=== PATIENT | male | born 1955 | race Caucasian/White ===

== ENCOUNTER 2020-01-25 05:30 | Inpatient (IN) | payer OTHER, MEDICAID, SELFPAY ==
--- NOTE | 2020-01-16 21:45 | NUR ---
PT AFEBRILE, IN PRONE POSITION, PT SHOWING NO SIGNS OF ACUTE DISTRESS, ADMINSITERED 2100H MEDICATIONS PER ORDERS, BLOOD GLUCOSE 262, ADMINISTERED 6 UNITS HUMALOG PER PROTOCOL, SAFETY MEASURES IN PLACE, WILL CONTINUE TO MONITOR
[~2020-01-25] VITALS: Ht 177.8 cm; Wt 80.7 kg
--- NOTE | 2020-01-25 05:40 | NUR ---
Biba to bed 08
--- NOTE | 2020-01-25 05:45 | NUR ---
Blood cultures collected and sent to lab.
[2020-01-25 05:50] VITALS: BP 138/84
[2020-01-25] MEDS ORDERED: ALBUTEROL HFA MDI 90 MCG/ACTUATION 8 GM INH ONE (05:50)
[2020-01-25] MEDS ORDERED: AZITHROMYCIN 500 MG in NACL 0.9% 250 ML IV ONE (05:50)
[2020-01-25] MEDS ORDERED: DEXAMETHASONE 4 MG/ML VIAL IVP ONE (05:50)
[2020-01-25] MEDS ORDERED: AZITHROMYCIN 500 MG in DEXTROSE 5% 250 ML IV ONE (05:50)
--- NOTE | 2020-01-25 05:54 | NUR ---
pt is Covid +. room air 72%. placed on 15L NRB, saturations improved to 94%. pt still tachypneic and rhonchi bilat bases.
[2020-01-25] MEDS ORDERED: NACL 0.9% 2,000 ML IV ONE (06:00)
[2020-01-25] MEDS ORDERED: cefTRIAXone 1,000 MG VIAL ONE (06:03)
[2020-01-25] MEDS ORDERED: AZITHROMYCIN 500 MG INJ VIAL IV ONE (06:03)
--- NOTE | 2020-01-25 06:10 | NUR ---
EKG PERFORMED AT BEDSIDE. EKG READS SINUS TACHYCARDIA @ 114
--- NOTE | 2020-01-25 06:12 | NUR ---
64 Y/O MALE BIBA FROM HOME WITH C/O SOB X 1 WEEK. 0/10 PAIN. PT STATES HE WAS DIAGNOSED COVID+ LAST WEEK. PT STATES HE HAS BEEN HOSPITALIZED 4 DIFFERENT TIMES BY [facility], AND [facility]. PT IS A&O X4, BREATHING IS LABORED, AND SHALLOW. PT IS ON 15 L NON REBREATHER AT 97%, WITH SINUS TACH. RHONCHI IS AUSCULTATED AT BILATERAL LUNG BASES, BODY ACHES, WITH PRODUCTIVE COUGH. PT STATES SENSE OF SMELL, AND TASTE IS SLIGHTLY ALTERED. COVID PRECAUTIONS IN PLACE. SIDE RAIL X2, BED IN LOW POSITION, WILL CONTINUE TO MONITOR. NKDA PMH: 2 CARDIAC STENTS, AND DM
[2020-01-25 06:14] LABS: BASOPHILS % (AUTO) 0.1 % (0.0-2.0); HEMATOCRIT 45.7 % (36-52); HEMOGLOBIN 15.1 g/dL (12.0-18.0); LYMPHOCYTES # (AUTO) 1.2 K/uL (2.0-11.5); LYMPHOCYTES % (AUTO) 7.1 % (20.5-51.1); MEAN CORPUSCULAR HEMOGLOBIN 30 pg (27-31); MEAN CORPUSCULAR HGB CONC 33 g/dL (33-37); MEAN CORPUSCULAR VOLUME 90.8 fL (80-94); MONOCYTES # (AUTO) 1.2 K/uL (0.8-1.0); MONOCYTES % (AUTO) 7.1 % (1.7-9.3); NEUTROPHILS # (AUTO) 14.3 K/uL (1.8-7.7); NEUTROPHILS % (AUTO) 85.7 % (42.2-75.2); PLATELET COUNT (AUTO) 193 K/uL (140-450); RED BLOOD CELL COUNT(AUTO) 5.03 MIL/uL (4.20-6.10); RED CELL DISTRIBUTION WIDTH 14.5 % (11.6-13.7); WHITE BLOOD COUNT (AUTO) 16.7 K/uL (4.8-10.8)
--- NOTE | 2020-01-25 06:20 | NUR ---
CHET Carter at bedside obtaining IV contrast consent form.
[2020-01-25 06:22] LABS: ANION GAP 19.8 (8-16); CARBON DIOXIDE 21.4 mmol/L (21-32); CREATININE 1.3 mg/dL (0.6-1.3); POTASSIUM 4.2 mmol/L (3.5-5.1)
--- NOTE | 2020-01-25 06:25 | NUR ---
xray at bedside
[2020-01-25 06:29] LABS: ALBUMIN 3.1 g/dL (3.4-5.0); TOTAL BILIRUBIN 0.8 mg/dL (0.0-1.0)
[2020-01-25] MEDS ORDERED: BENZ-196 PO (06:29)
[2020-01-25] MEDS ORDERED: XALOS OP (06:29)
[2020-01-25] MEDS ORDERED: ALBU6.7H IH (06:29)
[2020-01-25] MEDS ORDERED: AZIT250T3 PO (06:29)
[2020-01-25] MEDS ORDERED: FLUT1DSK IH (06:29)
[2020-01-25] MEDS ORDERED: DOXY100C9 PO (06:29)
[2020-01-25] MEDS ORDERED: PRED20TA5 PO (06:29)
--- NOTE | 2020-01-25 06:36 | NUR ---
CRITICAL LAB VALUE REPORTED BY NICOLA FROM LAB: LACTIC ACID 4.8. ERMD MADE AWARE
--- NOTE | 2020-01-25 06:42 | NUR ---
PER TAMMY LOPEZ, ORDERED AZITHROMYCIN 500MG IN D5% 250 ML HAS BEEN DC'D. INSTEAD TAMMY HAS VERBALLY ORDERED OF AZITHROMYCIN 500MG IN NS 0.9% 250ML
--- NOTE | 2020-01-25 07:00 | NUR ---
RECEIVED CHANGE OF SHIFT REPORT FROM SANDHYA RN FOR CONTINUITY OF CARE.
--- NOTE | 2020-01-25 07:33 | NUR ---
PER [facility] CHARGE, NO BEDS AVAILABLE AT THIS TIME.
--- NOTE | 2020-01-25 09:00 | NUR ---
Patient appears to be resting comfortably in bed. Vital Signs within normal limits. Respirations even and unlabored.
[2020-01-25] MEDS ORDERED: ONDANSETRON 4 MG/2 ML VIAL IM/IVP PRN (09:25)
[2020-01-25] MEDS ORDERED: POTASSIUM CHLORIDE 10 MEQ TABER PO PRN (09:25)
[2020-01-25] MEDS ORDERED: ALBUTEROL HFA MDI 90 MCG/ACTUATION 8 GM INH PRN (09:25)
[2020-01-25] MEDS ORDERED: DOCUSATE SODIUM 100 MG GELCAP PO PRN (09:25)
[2020-01-25 10:00] LABS: CHOL/HDL RATIO 3.6 (1-4.5); FREE T4 (FREE THYROXINE) 1.29 ng/dL (0.76-1.46); MAGNESIUM 1.9 mg/dL (1.8-2.4); PHOSPHORUS 3.1 mg/dL (2.5-4.9); PROTHROMBIN TIME 9.7 secs (10.8-13.4); THYROID STIMULATING HORMONE 1.34 uIU/mL (0.34-3.74)
[2020-01-25 10:10] LABS: APPEARANCE,URINE CLEAR (CLEAR); BILIRUBIN,URINE NEGATIVE (NEGATIVE); BLOOD, URINE TRACE-L (NEGATIVE); COLOR,URINE YELLOW (YELLOW); LEUKOCYTE ESTERASE ,URINE NEGATIVE (NEGATIVE); NITRITE, URINE NEGATIVE (NEGATIVE); PH,URINE 5.5 (5.0-9.0); UGLUCOSE 3+ (NEGATIVE)
[2020-01-25 10:25] LABS: RBC,URINE NONE SEEN /HPF (0-5); WBC,URINE 0-5 /HPF (0-5)
[2020-01-25 10:31] LABS: BARBITURATE, URINE NEGATIVE ng/ml (NEG <=200); BENZODIAZEPINE, URINE NEGATIVE ng/mL (NEG <=200); CANNABINOID, URINE NEGATIVE ng/mL (NEG <=50); COCAINE, URINE NEGATIVE ng/mL (NEG <=300); OPIATE, URINE POSITIVE ng/mL (NEG <=2000); PHENCYCLIDINE SCREEN,URINE NEGATIVE ng/mL (NEG <=25)
--- NOTE | 2020-01-25 13:45 | NUR ---
PT C/O 8/10 CHEST PAIN FROM COUGHING. PT REQUESTING PAIN MEDICATION & COUGH MEDICATION. WILL ADMIN PRN NORCO FOR PAIN & WILL CONTACT DR. TUBBS FOR COUGH MEDICINE ORDER.
--- NOTE | 2020-01-25 13:55 | NUR ---
PROVIDED PT WITH SANDWICH & JUICE REQUESTED. PLACED ON NC 5LPM WHILE PT EATS.
[2020-01-25] MEDS: HYDROcodone/APAP 7.5/325 MG 1 TAB PO PRN ×2 (13:58→19:26)
[2020-01-25] MEDS: guaiFENesin DM 200/20 MG-10 ML 10 ML UDC PO PRN (13:59)
[2020-01-25] MEDS ORDERED: remdesivir COMMUNICATION ORDER 1 EA MISC MC PRN (14:15)
[2020-01-25] MEDS ORDERED: CLINICAL MONITORING MC PRN (14:35)
[2020-01-25] MEDS ORDERED: REMDESIVIR (EUA) 200 MG in NACL 0.9% 100 ML IV SCH (16:00)
--- NOTE | 2020-01-25 17:00 | NUR ---
PATIENT RESTING IN BED AT THIS TIME. PAIN IS 3/10, COUGHING HAS REDUCED.
--- NOTE | 2020-01-25 18:38 | NUR ---
PROVIDED PT WITH DINNER TRAY. PLACED ON NC 5LPM WHILE PT EATS.
--- NOTE | 2020-01-25 19:26 | NUR ---
Pt o2 sat 84% on 15lmp NRB. administered 2 puffs of ventolin inhaler but pt is unable to take deep breath and just coughs it out. Called RT to bring spacer for administration. Pt states he is still having intermittent chest pain 7/10 and would like more pain medication & cough medicine. Informed pt only medication due at this time is norco for pain. will administer.
--- NOTE | 2020-01-25 19:30 | NUR ---
RECEIVED REPORT FROM DAYSNMFT NURSE, PT SITTING UP IN BED, NONREBREATHER 15L, SP02 85%. PT TACHYPNEIC AND TACHYCARDIC. RIGHT AC 18G, SALINE LOCKED. COACHED PATIENT TO LIMIT ACTIVITY AND TALKING TO PREVENT OVEREXERTION. PT RESTLESS. AFEBRILE. BED LOCKED AND IN LOWEST POSITION. SIDERAILS UP. CALL LIGHT WITHIN REACH. PENDING ADMISSION.
[2020-01-25] MEDS ORDERED: LORazepam 2 MG/ML VIAL ONE (19:46)
--- NOTE | 2020-01-25 20:10 | NUR ---
ADMINSTERED ATIVAN ORDERED. PT ASSISTED TO PRONE POSITIONING. PT EDUCATED ON POSITIONING AND RELAXATION TECHNIQUES. PT VERBALIZED UNDERSTANDING AND REPORTS " THIS FEELS MUCH BETTER" SP02 98%, RESPIRATIONS 28. PT NOT IN DISTRESS.
--- NOTE | 2020-01-25 20:25 | NUR ---
Patient will be admitted to care of DR. TUBBS. Admited to TELE. Will go to room 113 . Belongings list completed. Report to CHET CHOE.
--- NOTE | 2020-01-25 20:39 | NUR ---
PT HEADED TO TELE FLOOR WITH PRIMARY NURSE AND RT.
[2020-01-25 21:00] VITALS: BP 161/85
[2020-01-25] MEDS: LATANOPROST 0.005% OP 2.5 ML BTL OP SCH (21:00)
--- NOTE | 2020-01-25 21:00 | NUR ---
RECEIVED PT REPORT FROM ER NURSE FOR CONTINUITY OF CARE. PT ARRIVED TO THE UNIT VIA GURNEY. PT IS AWAKE AND ALERT, A&OX4. BREATHING IS LABORED AND SHALLOW ON 15L O2 NONREBREATHER. O2 SAT IS 88% AND DESATURATING. PT IS PLACED IN PRONE POSITION. SKIN IS WARM, DRY, AND INTACT. BOWEL SOUNDS ARE PRESENT. LUNG SOUNDS ARE COARSE AND DIMINISHED. URINAL IS AT THE BEDSIDE NEEDED. CALL LIGHT IS WITHIN REACH AND BED IS IN THE LOWEST POSITION. HR IS 94 AND BP IS 161/85. IV IS IN THE RIGHT AC 18 GAUGE. PLAN OF CARE DISCUSSED. WILL CONTINUE TO MONITOR PT FOR RESPIRATORY DISTRESS.
--- NOTE | 2020-01-25 21:10 | NUR ---
PT IS DESATURATING ON 15 L O2 NONREBREATHER. PT WAS AT 88% O2 SAT AND IS NOW AT 80% O2 SAT. RR IS 35, HR IS 125, AND BP IS 179/100. CALLED DR. TUBBS ON THE [employer] PHONE NUMBER AND PERSONAL CELL PHONE BUT THE MAILBOX WAS FULL WITH NO ANSWER. TEXTED DR. TUBBS AND INFORMED HIM OF THIS INFORMATION. ALSO PAGED RT TO COME TO BEDSIDE AND HE STATED HE WOULD BE THERE RAUL. ALSO INFORMED CHARGE NURSE, SOHAN, ABOUT THE STATUS OF THE PATIENT. WILL STAY AT BEDSIDE WITH PT AND CONTINUE TO MONITOR.
--- NOTE | 2020-01-25 21:20 | NUR ---
GLOBAL SUPPLY CHAIN VICE PRESIDENT, VERONICA ROSENBERG, AT BEDSIDE WITH RT ASSESSING PT. CHARGE NURSE, SOHAN ROSENBERG, ALSO AT BEDSIDE. PT IS AT 78% O2 SAT ON 15 L NONREBREATHER. RR IS 34 AND BREATHING IS LABORED. RAPID RESPONSE WAS CALLED.
--- NOTE | 2020-01-25 21:30 | NUR ---
BIPAP WAS INITIATED DURING THE RAPID RESPONSE DUE TO PT DESATURATING. PT IS IN PRONE POSITION AND TOLERATING THE BIPAP WELL. O2 SAT IS 96%, HR IS 115, BP IS 149/84, AND RR IS 37. WILL CONTINUE TO MONITOR.
[2020-01-25 21:35] VITALS: BP 173/86
--- NOTE | 2020-01-25 21:35 | NUR ---
RESPONDED TO RAPID RESPOND DUE TO PT DESATURATING ON NON REBREATHER AND IN PRONE POSITION. PT WAS ASSESSED AND BiPAP WAS INITIATED. PT WAS PLACED ON BiPAP SETTINGS: AC/PC IPAP 16 cmH20, EPAP 6, FiO2 100% WITH SPO2 OF 93%. PT PLACED BACK IN PRONE POSITION. BiPAP PLUGGED IN RED OUTLET. ALARMS SET AND AUDIBLE TO ENVIRONMENT. AUSCULTATION REVEALS RALES BILATERAL BREATH SOUNDS. PT IS TOLERATING WELL. WILL CONTINUE TO MONITOR PT.
[2020-01-25] MEDS: LORazepam 2 MG/ML VIAL IVP PRN (21:49)
--- NOTE | 2020-01-25 21:49 | NUR ---
PT IS VERY ANXIOUS WITH THE BIPAP AND WAS GIVEN ATIVAN PRN FOR ANXIETY. BP WAS 149/84 PRIOR TO ADMINISTRATION OF MEDICATION. WILL MONITOR PT FOR ANXIETY.
--- NOTE | 2020-01-25 22:10 | NUR ---
DR. TUBBS WAS INFORMED ABOUT THE RAPID RESPONSE ON THE PT. DR. TUBBS STATED THAT THE PT WILL STAY ON THE FLOOR LONG HE IS TOLERATING THE BIPAP WELL AND TO INFORM HIM ABOUT ANY CHANGES.
[2020-01-25 23:34] VITALS: BP 152/83
[2020-01-25] MEDS ORDERED: ALBUTEROL SULFATE/IPRATROPIU 3 ML SOL IH PRN (23:35)
[2020-01-26] VITALS (8 sets, daily range): BP systolic 113–161; BP diastolic 57–82
--- NOTE | 2020-01-26 | NUR ---
PT IS ON BIPAP. O2 SAT IS 96%, RR IS 35, AND HR IS 94. PT IS STABLE AT THIS TIME. WORK OF BREATHING IS UNLABORED. PT IS IN PRONE POSITION.
[2020-01-26] MEDS: ALBUTEROL SULFATE/IPRATROPIU 3 ML SOL IH SCH ×4 (00:40→13:21)
--- NOTE | 2020-01-26 00:53 | NUR ---
PT SPILLED URINE OUT OF THE URINAL ONTO THE BED. PT'S LINENS/ GOWN ARE NOW CHANGED AND NEW LINENS WERE PLACED ON THE BED. PT IS NOW STABLE IN PRONE POSITION WITH BIPAP ON. O2 SAT IS 98%. RR IS 32.
[2020-01-26] MEDS: LORazepam 2 MG/ML VIAL IVP PRN ×2 (03:17→09:10)
--- NOTE | 2020-01-26 03:17 | NUR ---
ROUNDED ON PT. HE SAID HE WAS VERY ANXIOUS SO HE PULLED OFF HIS BIPAP AND WAS DESATURATING TO 70%. HE ALSO PULLED OFF ALL LEADS ON HIS EKG. EKG LEADS WERE PLACED ON PT AND BIPAP IS NOW BACK ON. PT O2 SAT IS 98% AND RR IS 32. PT WAS GIVEN ATIVAN PRN FOR ANXIETY. BP PRIOR TO ADMINISTRATION WAS 145/89. WILL CONTINUE TO MONITOR ANXIETY.
--- NOTE | 2020-01-26 04:04 | NUR ---
INFORMED PT ABOUT THE ORDER FOR CONVALESCENT PLASMA. GAVE PT EDUCATION ABOUT THE PLASMA. AT THIS TIME PT STATES HE WOULD LIKE TO THINK ABOUT IT MORE BEFORE HE SIGNS THE CONSENT.
--- NOTE | 2020-01-26 05:20 | NUR ---
ROUNDED ON PT. HE IS SLEEPING IN PRONE POSITION WITH BIPAP ON. O2 SAT IS 98% AND RR IS 32. NO RESPIRATORY DISTRESS NOTED. WILL CONTINUE TO MONITOR.
--- NOTE | 2020-01-26 05:40 | NUR ---
RESPIRATORY THERAPIST, PRADEEP, ROUNDED ON PT. PT HAD TAKEN OFF THE BIPAP AND WAS LAYING IN SUPINE POSITION. O2 SAT WAS 47% AND PT APPEARED DROWSY. PT WAS PLACED BACK ON BIPAP AND PLACED IN PRONE POSITION. O2 SAT WENT BACK UP TO 99% AND RR IS 33. EDUCATION WAS PROVIDED ON THE IMPORTANCE OF RECEIVING OXYGEN THROUGH THE BIPAP. PT WAS ALSO INFORMED ABOUT THE POSSIBLE OUTCOMES IF HE DOES NOT RECEIVE THE PROPER AMOUNT OF OXYGEN TO THE BODY BY TAKING OFF THE BIPAP. PT VERBALIZED UNDERSTANDING. NO RESPIRATORY DISTRESS NOTED.
--- NOTE | 2020-01-26 06:08 | NUR ---
FOUND PT IN SUPINE POSITION. PT HAD TAKEN OFF BiPAP MASK WITH SPO2 IN 47-48%. PT WAS RESPONSIVE AND HAD A PULSE. PLACED PT BACK ON BiPAP AND PRONE POSITION. SPO2 IN 96 TO 99%. RN REPORTED THAT PT TOOK OF MASK EARLIER. CHARGE NURSE WAS NOTIFIED. RN WILL MONITOR PT.
--- NOTE | 2020-01-26 07:25 | NUR ---
ENDORSED PT TO DAY SHIFT NURSE FOR CONTINUITY OF CARE. PT IS ASLEEP IN PRONE POSITION. O2 SAT IS 100% ON 100% FIO2 ON BIPAP. RR IS 35 AND HR IS 76. PT IS STABLE AT THIS TIME. FALL PRECAUTIONS IN PLACE. BED IS IN THE LOWEST POSITION. BELONGINGS AT THE BEDSIDE. NEVER CALLED BACK WHEN I LEFT A MESSAGE EARLIER IN THE SHIFT.
--- NOTE | 2020-01-26 07:26 | NUR ---
RECEIVED ENDORSEMENT FROM FROM KIER DRIER ON LEFT SIDE LYING POSITION, AWAKE, ALERT, WITH BIPAP [id number]%, SATURATING AT 95%, MILD LABORED BREATHING NOTED, RR-26BPM. SKIN WARM TO TOUCH, WITH IV CANNULA G 18 AT RT AC NOTED. DX WITH COVID POSITIVE, PNEUMONIA AND HYPOXIA, ON DROPLET ISOLATION, SAFETY MEASURES IN PLACE AND CONTINUE MONITOR
[2020-01-26 07:31] LABS: HEMATOCRIT 38.6 % (36-52); HEMOGLOBIN 12.7 g/dL (12.0-18.0); MEAN CORPUSCULAR HEMOGLOBIN 30 pg (27-31); MEAN CORPUSCULAR HGB CONC 33 g/dL (33-37); MEAN CORPUSCULAR VOLUME 90.8 fL (80-94); PLATELET COUNT (AUTO) 171 K/uL (140-450); RED BLOOD CELL COUNT(AUTO) 4.25 MIL/uL (4.20-6.10); RED CELL DISTRIBUTION WIDTH 14.1 % (11.6-13.7); WHITE BLOOD COUNT (AUTO) 15.2 K/uL (4.8-10.8)
[2020-01-26 07:46] LABS: MAGNESIUM 2.2 mg/dL (1.8-2.4); PHOSPHORUS 3.4 mg/dL (2.5-4.9)
[2020-01-26 07:56] LABS: LYMPHOCYTES % (MANUAL) 10 % (20-46); MONOCYTES % (MANUAL) 8 % (5-12)
--- NOTE | 2020-01-26 08:05 | NUR ---
TEXTED DR. TUBBS TO INFORM HIM THAT THE PT DESATURATED TWICE LAST NIGHT BY TAKING OFF HIS BIPAP. I MONITORED THE PT VERY CLOSELY AND PROVIDED PT EDUCATION ON IMPORTANCE OF THE BIPAP AND WHAT COULD HAPPEN BY TAKING IT OFF UNEXPECTEDLY. NO RESPONSE YET, BUT I INFORMED VANIA ROSENBERG TO EXPECT A REPLY FROM THE DOCTOR.
[2020-01-26 08:09] LABS: T4 (THYROXINE) 7.3 ug/dL (4.5-12.0)
[2020-01-26 08:23] LABS: ALBUMIN 2.3 g/dL (3.4-5.0); ANION GAP 19.8 (8-16); CARBON DIOXIDE 20.6 mmol/L (21-32); POTASSIUM 4.4 mmol/L (3.5-5.1); TOTAL BILIRUBIN 0.7 mg/dL (0.0-1.0)
--- NOTE | 2020-01-26 08:50 | NUR ---
PATIENT HAS BEEN SCREENED AND CATEGORIZED MODERATE NUTRITION RISK. PATIENT WILL BE SEEN WITHIN 3-5 DAYS OF ADMISSION. 01/27/20 01/29/[address]
[2020-01-26] MEDS: DEXAMETHASONE 4 MG TAB PO SCH (08:58)
[2020-01-26] MEDS: ASCORBIC ACID 500 MG TAB PO SCH (08:59)
[2020-01-26] MEDS: ZINC SULF 220 MG CAP PO SCH (08:59)
[2020-01-26] MEDS: AZITHROMYCIN 250 MG TAB PO SCH (08:59)
--- NOTE | 2020-01-26 09:05 | NUR ---
APPARENTLY ANXIOUS AND REMOVING HIS BIPAP, RT AT BEDSIDE. ABLE ATE SMALL AMOUNT OF BREAKFAST SERVED. DUE MEDICATION GIVEN. ATIVAN 1MG IV ORDERED PRN GIVEN, HEALTH TEACHING RENDERED, REINFORCEMENT NEEDED, KEPT COMFORTABLE TO BED, CONTINUE MONITOR
--- NOTE | 2020-01-26 10:42 | NUR ---
ASLEEP, NON LABORED BREATHING NOTED.
--- NOTE | 2020-01-26 10:52 | NUR ---
DC PLANNIN YRS OLD MALE PATIENT WAS ADMITTED FROM HOME WITH A DX OF SEPSIS, PNEUMONIA, COVID POSITIVE. PT HAS A HX OF CARDIAC STENT PLACEMENT IN AUGUST 2019, CABG. CXR SHOWED PATCHY CONSOLIDATIONS THROUGH THE LUNGS WHICH COULD REPRESENT PNEUMONIA. CT CHEST SHOWED NO PE. RAPID COVID TEST POSITIVE PCR IS PENDING. INFLUENZA A&B NEGATIVE. BLOOD AND URINE CULTURE PENDING. ADMINISTERED COVID PROTOCOL , IVF, IV ABX ROCEPHIN AND AZITHROMYCIN. CONSULTED WITH ANTWAN AND BLANCA. DC PLAN TO GO HOME WHEN STABLE CM TO FOLLOW. Addendum: 01/28/20 at 1627 by Natasha Butts RN DC PLANNING: PT IS ON BIPAP WITH 100% FIO2 , SEEN BY ANTWAN MELCHOR , CONTINUE CURRENT THERAPY .CM TO FOLLOW Addendum: 02/02/20 at 1626 by Natasha Butts RN DC PLANNING: PT HAS LOW BP 93/54 ON BP SUPPORT MEDS INTUBATED SEDATED , CONTINUE COVID TREATMENT , PRONE POSITIONED ID, PULMO AND CARDIO FOLLOWING. POOR PROGNOSIS, MD TO DISCUSS WITH FAMILY. CM TO FOLLOW Addendum: 02/03/20 at 1342 by Natasha Butts RN DC PLANNING: PT INTUBATED AND SEDATED DAY 4 WITH [id number]% .ON IVF , FENTANYL, PROPOFOL, LEVOPHED, ZOSYN,DECADRON AND LOVENOX. POSSIBLE MARY CATH TODAY WITH DR DUPONT AND HEMODIALYSIS TOMORROW . ID,PULMO, CARDIO AND NEPHRO FOLLOWING . CM TO FOLLOW
--- NOTE | 2020-01-26 12:29 | NUR ---
RT CONTACTED TO TEMPORARILY REMOVED THE BIPAP, PATIENT WILL TAKE HIS LUNCH.
--- NOTE | 2020-01-26 12:45 | NUR ---
EXPLAINED THE INDICATION AND IMPORTANCE OF CONVALESCENT PLASMA, VERBALIZED UNDERSTANDING AND SIGNED THE CONSENT.
--- NOTE | 2020-01-26 13:19 | NUR ---
SOCIAL WORK NOTE: SW WAS UNABLE TO MEET PATIENT AT BEDSIDE DUE TO MEDICAL CONDITION. SW CONTACTED PATIENT'S ROOM PHONE AND PATIENT'S , LOBO GAY [phone]. SW LEFT VM. LAURA ALSO CONTACTED PATIENT'S NURSE TO SEE IF ROOM PHONE WAS FUNCTIONING. PER CHET BUTTS, ROOM PHONE IS WORKING, BUT PATIENT IS ON BIPAP AND IS SLEEPING. SW WILL FOLLOW UP. Addendum: 01/26/20 at 1517 by Celestine Richardson Patient's Orientation Person Situation Place Time Information Provided By PATIENT Comments LAURA MET PATIENT AT BEDSIDE TO COMPLETE ASSESSMENT. Stitch Bonding Machine Drawer In, Realtionship and Phone Number LOBO GAY [phone] [facility] Power of Zinc Plate Grainer No Does Patient Have a POLST No Identifying Problems No Social Work Triggers Is A Social Work Consult Needed No Mandate Report Filed No Explanation Of Identifying Problems PATIENT IS A 64-YEAR-OLD MALE ADMITTED FOR SEPSIS, PNEUMONIA, AND COVID. PATIENT HAS PMHX OF CARDIAC STENTS IN AUGUST 2019. PATIENT REPORTED NO SUBSTANCE ABUSE HISTORY OR MENTAL HEALTH HISTORY. Admitted From Home Pre-Admission Level Of Functioning Status Assist With ADL Level Of Functioning Comment PATIENT STATED THAT HE IS INDEPENDENT WITH ADLS AT BASELINE, BUT HAS BEEN LESS INDEPENDENT SINCE ONOFRE VIRUS. PATIENT STATED THAT HE RECEIVES ADEQUATE CARE FROM HIS . Prior Resources/Services Used In Last 12 Months No Prior Resources Used Prior DME Wheelchair Dialysis Comments N/A Living Situation House Lives With Spouse Patient Had Caregiver No Home Support No Caregiver Issues Financial Issues No Known Financial Issue Referral To The Financial Counselor Needed No Factors/Needs No D/C Needs Identified Pt/Rep Participated In Discharge Plan Yes Patient/Family Agress With Discharge Plan Yes Discharge Plan Comments TENTATIVE DISCHARGE PLAN IS FOR PATIENT TO RETURN HOME. DC Plan Status Initiated
[2020-01-26] MEDS: REMDESIVIR (EUA) 100 MG in NACL 0.9% 100 ML IV SCH (14:20)
--- NOTE | 2020-01-26 14:28 | NUR ---
FULLY AWAKE AND ALERT, NOT IN DISTRESS NOTED, DUE REMDESIVER IVPB GIVEN
--- NOTE | 2020-01-26 15:30 | NUR ---
DR. TUBBS SIGNED THE CONSENT FOR CONVALESCENT PLASMA TRANSFUSION.
--- NOTE | 2020-01-26 15:46 | NUR ---
ASLEEP, STILL ON BIPAP, BREATHING SPONTANEOUSLY, NON LABORED NOTED.
--- NOTE | 2020-01-26 16:10 | NUR ---
AFTERNOON CARE DONE BY BEHAVIORAL MEDICAL DIRECTOR, PATIENT NOT IN DISTRESS NOTED
--- NOTE | 2020-01-26 16:45 | NUR ---
BLOOD BANK CONTACTED TO FOLLOW UP THE PLASMA, SAID TO CALL BACK AFTER 10MINS, BLOOD BANK PERSONNEL NOT AROUND
[2020-01-26] MEDS: HYDROcodone/APAP 7.5/325 MG 1 TAB PO PRN (17:47)
--- NOTE | 2020-01-26 17:51 | NUR ---
COMPLAINED OF CHEST PAIN WHEN COUGHING, 5/10, NORCO 1 TAB ORDERED PRN GIVEN, KEPT COMFORTABLE TO BED
--- NOTE | 2020-01-26 18:08 | NUR ---
BLOOD BANK CONTACTED AND SPOKE WITH MS. OTLENTINO, CONVALESCENT PLASMA STILL NOT AVAILABLE.
--- NOTE | 2020-01-26 18:50 | NUR ---
CONTACTED TO UPDATE PATIENT STATUS AND BRING PT CELLPHONE REQUESTED BY THE PATIENT.
--- NOTE | 2020-01-26 19:30 | NUR ---
RECEIVED PATIENT FROM DAY SHIFT ON BIPAP ON DOCUMENTED SETTING. BIPAP PLUGGED INTO RED OUTLET. BMV AT BEDSIDE. MASK SECURED. ALARMS SET. WILL CONTINUE TO MONITOR CLOSELY
--- NOTE | 2020-01-26 19:31 | NUR ---
ENDORSED TO WAREHOUSE SHIPPING ASSOCIATE IN STABLE CONDITION FOR CONTINUITY OF CARE
--- NOTE | 2020-01-26 19:33 | NUR ---
RECEIVED PT IN STABLE CONDITION FROM AM NURSE. TELE PT. AAOX4. BEDREST . WITH BIPAP ON 93% O2 SAT. NO SOB NOTED. WITH IVF INFUSING WELL ON THE RTACg#18. CLEAR AND PATENT. DROPLET PRECAUTION DUE TO COVID + PCR STILL PENDING. BED ON LOW POSITION. SIDE RAILS UP X2. CALL LIGHT PLACED WITHIN REACH. WILL CONTINUE TO MONITOR.
[2020-01-26] MEDS: LATANOPROST 0.005% OP 2.5 ML BTL OP SCH (20:42)
--- NOTE | 2020-01-26 20:52 | NUR ---
LAB CALLED FOR COVID- 19 PCR TEST RESULT - POSITIVE. PT ALREADY ON DROPLET PRECAUTION.
[2020-01-27] VITALS: BP 151/79
[2020-01-27] MEDS: ALBUTEROL SULFATE/IPRATROPIU 3 ML SOL IH SCH ×4 (01:35→19:04)
--- NOTE | 2020-01-27 02:45 | NUR ---
I UNIT FRESH FROZEN PLASMA STARTED AFTER VERIFIED WITH ANOTHER RNANANDA WITH THE PT. VITAL SIGNS TAKEN BEFORE . STABLE. O2 SAT 97%. INSTRUCTED PT NOT TO REMOVE THE BIPAP MACHINE TO KEEP HIS O2 SAT GOOD WHILE IN BLOOD TRANSFUSION. WILL CONTINUE TO MONITOR FOR ANY REACTION TO BLOOD.
--- NOTE | 2020-01-27 03:30 | NUR ---
BLOOD WAS TRANSFUSED AND VITAL SIGNS TAKEN AFTER . STABLE ,O2 SAT 97% AFEBRILE. NO REACTION NOTED.
[2020-01-27 03:45] VITALS: BP 146/77
--- NOTE | 2020-01-27 05:00 | NUR ---
CHECKED ON PT. O2 SAT 96%. NO DISTRESS NOTED.
--- NOTE | 2020-01-27 07:10 | NUR ---
ENDORSED PT IN STABLE CONDITION TO AM NURSE.
--- NOTE | 2020-01-27 07:15 | NUR ---
RECEIVED PT FROM CARTOGRAPHY SUPERVISOR NURSE, PT IS ON BIPAP MACHINE IPAP 16, PIP 18, EPAP 8, R 16, O2 100%, IV NOTED TO RAC G 18 RUNNING NS @ 10 ML/HR, URINAL AT BEDSIDE, PT IS AWAKE, NO SIGNS OF DISTRESS NOTED, SAFETY AND FALL PRECAUTIONS IN PLACE, WILL CONTINUE TO MONITOR.
[2020-01-27 07:43] LABS: HEMATOCRIT 42.2 % (36-52); HEMOGLOBIN 13.8 g/dL (12.0-18.0); MEAN CORPUSCULAR HEMOGLOBIN 30 pg (27-31); MEAN CORPUSCULAR HGB CONC 33 g/dL (33-37); MEAN CORPUSCULAR VOLUME 91.7 fL (80-94); NEUTROPHILS % (AUTO) 84.1 % (42.2-75.2); PLATELET COUNT (AUTO) 238 K/uL (140-450); RED BLOOD CELL COUNT(AUTO) 4.61 MIL/uL (4.20-6.10); RED CELL DISTRIBUTION WIDTH 14.6 % (11.6-13.7); WHITE BLOOD COUNT (AUTO) 16.2 K/uL (4.8-10.8)
[2020-01-27 07:44] LABS: BASOPHILS % (AUTO) 0.2 % (0.0-2.0); LYMPHOCYTES # (AUTO) 0.7 K/uL (2.0-11.5); LYMPHOCYTES % (AUTO) 4.4 % (20.5-51.1); MONOCYTES # (AUTO) 1.8 K/uL (0.8-1.0); MONOCYTES % (AUTO) 11.3 % (1.7-9.3); NEUTROPHILS # (AUTO) 13.6 K/uL (1.8-7.7)
[2020-01-27 08:00] VITALS: BP 147/81
[2020-01-27 08:25] LABS: MAGNESIUM 2.3 mg/dL (1.8-2.4); PHOSPHORUS 3.6 mg/dL (2.5-4.9)
[2020-01-27] MEDS: ZINC SULF 220 MG CAP PO SCH (09:12)
[2020-01-27] MEDS: AZITHROMYCIN 250 MG TAB PO SCH (09:13)
[2020-01-27] MEDS: ASCORBIC ACID 500 MG TAB PO SCH (09:13)
[2020-01-27] MEDS: DEXAMETHASONE 4 MG TAB PO SCH (09:13)
--- NOTE | 2020-01-27 09:16 | NUR ---
PT WAS GIVEN SCHEDULED MORNING MEDICATIONS, PT TOLERATED MEDICATION WELL, WILL CONTINUE TO MONITOR.
[2020-01-27 10:09] LABS: ALBUMIN 2.4 g/dL (3.4-5.0); ANION GAP 18.4 (8-16); CARBON DIOXIDE 22.2 mmol/L (21-32); POTASSIUM 4.6 mmol/L (3.5-5.1); TOTAL BILIRUBIN 0.5 mg/dL (0.0-1.0)
--- NOTE | 2020-01-27 11:15 | NUR ---
INCREASED EPAP TO 8 TO MAINTAIN SATURATION AT 88% OR GREATER.
--- NOTE | 2020-01-27 11:40 | NUR ---
PT IV LINE WAS INFILTRATED, INSERTED NEW IV IN L. HAND 22 G, WILL CONTINUE TO MONITOR.
[2020-01-27 12:00] VITALS: BP 158/84
[2020-01-27] MEDS: REMDESIVIR (EUA) 100 MG in NACL 0.9% 100 ML IV SCH (13:41)
--- NOTE | 2020-01-27 13:41 | NUR ---
PT WAS GIVEN REMDESIVIR NOW, WILL MONITOR PT.
[2020-01-27 16:00] VITALS: BP 159/90
--- NOTE | 2020-01-27 17:08 | NUR ---
DR. LONG MADE A TELEPHONE ORDER TO START PT ON D5NS AT 100ML/HR NOW.
[2020-01-27] MEDS: DEXT 5% /NACL 0.9% 1,000 ML IV SCH (17:24)
--- NOTE | 2020-01-27 18:44 | NUR ---
CALLED DR LONG AND INFORMED THE DOCTOR OF THE PT'S RESPIRATORY STATUS. PER RT ASSESSMENT, PT'S O2 SAT RANGES FROM 88 TO 78%. ER DOCTOR CAME TO PT ROOM TO ASSESS PT. ER MD SAID PT MAY NEED TO BE INTUBATED DEPENDING ON ABG RESULTS. PT'S CURRENT VITALS BP 135/93, PULSE 87, RR 38, O2 88%, WILL CONTINUE TO MONITOR PT. RT ON BEDSIDE.
--- NOTE | 2020-01-27 18:53 | NUR ---
RECEIVED PATIENT OPN BIPAP 16/8 100 PERCENT. PATIENT IS VERY TACHYPNEIC. RR IN THE HIGH 40S. INCREASED SETTINGS TO 20/10,RR16, 100 PERCENT. SATURATION IMPROVED. BUT PATIENT IS USING ACCESSORY MUSCLES AND IS BREATHING FAST. PT SEEN BY DR. MUNIZ ER PHYSICIAN. REQUESTED FOR AN ABG
--- NOTE | 2020-01-27 19:10 | NUR ---
ABG SHOWN TO DR. MUNIZ AND CHET BREWSTER
--- NOTE | 2020-01-27 19:20 | NUR ---
ENDORSED PT TO MD UROLOGIST NURSE FOR CONTINUITY OF CARE.
--- NOTE | 2020-01-27 19:21 | NUR ---
RECEIVED ENDORSEMENT FROM CHET BOND. PT IS ON BIPAP, WITH O2 SAT FLUCTUATING AT 84%-86% BECAUSE THE PT IS SPITTING AND TAKING OFF THE BIPAP, HIS O2 SAT FLUCTUATES BUT AM NURSE TOLD ME THAT DR. MUNIZ IN E.R. TOLD HER THAT WE WILL NOT INTUBATE THE PT PER ABG RESULT. PT O2 SAT INCREASES SLOWLY UP ONCE HE PUT BACK ON HIS BIPAP. WILL CLOSELY MONITOR PT. IVF INFUSING, FALL PROTOCOL IN PLACE, SAFETY MEASURES IN PLACE, CALL LIGHT WITHIN REACH.
--- NOTE | 2020-01-27 19:50 | NUR ---
E.R. DR. MUNIZ CAME TO SEE THE PATIENT AND INFORM ME THAT PT DOESN'T NEED TO BE INTUBATED FOR NOW BECAUSE THE ABG RESULT IS OK, WILL CLOSELY MONITOR PT, I WILL LET DR. MUNIZ KNOW IN CASE THERE IS CHANGE.
[2020-01-27 20:00] VITALS: BP 159/96
[2020-01-27] MEDS: LATANOPROST 0.005% OP 2.5 ML BTL OP SCH (21:44)
--- NOTE | 2020-01-27 22:04 | NUR ---
DR. MUNIZ SEEN PT, PER RT SAID THAT PT IS NOT FOR INTUBATION FOR NOW. WILL CLOSELY MONITOR PT. CALL LIGHT WITHIN REACH.
[2020-01-27] MEDS: guaiFENesin DM 200/20 MG-10 ML 10 ML UDC PO PRN (23:16)
--- NOTE | 2020-01-27 23:20 | NUR ---
PT COUGHING, GAVE COUGH MED PO, TOLERATED WELL. NO SOB, ALL NEEDS ATTENDED. CALL LIGHT WITHIN REACH.
[2020-01-28] VITALS (7 sets, daily range): BP systolic 134–178; BP diastolic 72–109
--- NOTE | 2020-01-28 | NUR ---
V/S TAKEN, TEMP 100.1. COOLING MEASURES IN PLACE, ALL NEEDS ATTENDED. KEPT COMFORTABLE. CALL LIGHT WITHIN REACH. WILL CLOSELY MONITOR.
[2020-01-28] MEDS: ALBUTEROL SULFATE/IPRATROPIU 3 ML SOL IH SCH ×4 (00:55→19:00)
--- NOTE | 2020-01-28 01:20 | NUR ---
RT IS INSIDE THE ROOM, TALKING TO PT.
[2020-01-28] MEDS: LORazepam 2 MG/ML VIAL IVP PRN ×3 (01:29→16:58)
--- NOTE | 2020-01-28 01:34 | NUR ---
PT AGITATED, GAVE ATIVAN IVP PRN ORDERED, HOB ELEVATED, ON CONTINUED BIPAP, NO DISTRESS, PT RESTING W/ EYES CLOSE, AROUSABLE TO VERBAL, WILL CLOSELY MONITOR PT.
[2020-01-28] MEDS: DEXT 5% /NACL 0.9% 1,000 ML IV SCH ×3 (03:15→23:10)
[2020-01-28] MEDS: ACETAMINOPHEN 325 MG TAB PO PRN ×2 (04:37→22:43)
--- NOTE | 2020-01-28 04:37 | NUR ---
CHECKED PT, O2 SAT 91%, TYLENOL PO GIVEN PRN FOR FEVER, PERINEAL CARE RENDERED, REPOSITIONED, KEPT COMFORTABLE, CALL LIGHT WITHIN REACH.
--- NOTE | 2020-01-28 07:15 | NUR ---
PT IS IN STABLE CONDITION, O2 SAT AT 91%-92%, ENDORSED TO AM SHIFT RN FOR CONTINUITY OF CARE.
[2020-01-28 07:19] LABS: ALBUMIN 2.2 g/dL (3.4-5.0); ANION GAP 20.7 (8-16); CARBON DIOXIDE 19.7 mmol/L (21-32); POTASSIUM 4.4 mmol/L (3.5-5.1); TOTAL BILIRUBIN 0.6 mg/dL (0.0-1.0)
--- NOTE | 2020-01-28 07:22 | NUR ---
BREATHING TX NOT GIVEN DUE TO POSITIVE COVID PER RT PROTOCOL. PT IS ASLEEP AND COMFORTABLE. WILL CONTINUE TO MONITOR.
[2020-01-28] MEDS: ASCORBIC ACID 500 MG TAB PO SCH (09:00)
[2020-01-28] MEDS: AZITHROMYCIN 250 MG TAB PO SCH (09:00)
[2020-01-28] MEDS: DEXAMETHASONE 4 MG TAB PO SCH (09:00)
[2020-01-28] MEDS: ZINC SULF 220 MG CAP PO SCH (09:00)
--- NOTE | 2020-01-28 09:00 | NUR ---
Pt's SaO2 decreases to 80% and breathing becomes labored and tachypneic when bipap mask is removed. PO meds not given d/t intolerance in room air. Dr Stoner notified on the phone. No new orders.
--- NOTE | 2020-01-28 12:38 | NUR ---
Pt RR=30/min, SaO2 @ 85% on bipap with 100% FiO2. Pt awake, able to follow commands and verbalize needs. RT Alisa and David at bedside. Verbal cues provided to patient to take slow deep breaths. Lorazepam administered for anxiety. HOB remains at high fowlers.
--- NOTE | 2020-01-28 12:54 | NUR ---
BREATHING TX NOT GIVEN DUE TO COVID POSITIVE AND ANXIETY EPISODE.
--- NOTE | 2020-01-28 12:55 | NUR ---
INCREASED BIPAP SETTINGS TO IPAP 22 AND EPAP 12. PTS SATURATION IS 84-87% SPO2.
--- NOTE | 2020-01-28 14:20 | NUR ---
01/28/20 RD INITIAL ASSESSMENT COMPLETED PLEASE REFER TO NUTRITION ASSESSMENT UNDER CARE ACTIVITY FOR ESTIMATED NUTRITIONAL NEEDS. 1. HOLD MEALS IF PT IS AT RISK OF ASPIRATION 2. IF MEDICALLY STABLE FOR PO INTAKE RECOMMEND CCHO 60GM DIET WITH GLUCERNA TID 3. RD TO FOLLOW-UP 2-3 DAYS, HIGH RISK JESE CHAMBERS RD
[2020-01-28] MEDS: REMDESIVIR (EUA) 100 MG in NACL 0.9% 100 ML IV SCH (14:42)
--- NOTE | 2020-01-28 14:55 | NUR ---
Pt observed to be shivering and states he feels cold, axillary temp = 99.0, HR130, BP 150/74. Dr. Stoner notified of uncontrollable shivering and tachycardia. Received order to administer one time dose of lorazepam 1mg IVP. Order noted and carried out.
[2020-01-28] MEDS ORDERED: LORazepam 2 MG/ML VIAL IVP SCH (15:30)
--- NOTE | 2020-01-28 15:30 | NUR ---
Pt in high fowlers in bed, RR24/min on bipap (I-22, E12, FiO2 100%), MC=083, SaO2 90%. Pt has eyes closed but verbally responsive and follows commands when instructed.
[2020-01-28] MEDS ORDERED: DEXTROSE 50% 50 ML SYR IVP PRN (15:35)
[2020-01-28] MEDS: BLOOD GLUCOSE MONITORING 1 DEV DEV FS SCH ×2 (16:46→21:00)
[2020-01-28] MEDS: INSULIN LISPRO SLIDING SCALE 100 UNITS/ML VIAL SUBQ PRN ×2 (16:59→22:43)
--- NOTE | 2020-01-28 17:45 | NUR ---
Observed pt pulling on bipap mask. SaO2 decreased to 80%. Instructed patient to keep mask on to prevent SOB. Pt verbalized understanding. Assisted patient in replacing bipap mask, verbal cues provided to pt re: breathing with bipap. Pt able to follow commands. SaO2 slowly improved to 90% with previous bipap settings.
--- NOTE | 2020-01-28 19:20 | NUR ---
RECEIVED PT AAOX4 , RESTLESS - O2 SAT UP AND DOWN TO 80'S , - STAT REFER TO RT - FOR FURTHER ASSESSMENT RR 36 IV SITE INTACT AND PATENT . ON BI PAP SETTING - PLAN OF CARE DISCUSS BUT POOR UNDERSTANDING DUE TO MENTAL STATUS . SAFETY MEASURES IN PLACE . SUGGESTING FOR ABG STAT TO DR. TUBBS . FOR CLOSELY WATCH - FOR POSSIBLE INTUBATION . Addendum: 01/29/20 at 0028 by Loyda Harrell RN ATIVAN TO BE GIVEN 1MG - ATIVAN PULLED OUT FROM [employer] - BUT NOT ADMINISTER BEC . PT. POSSIBLE INTUBATION AND DIPRIVAN IS POSSIBLE TO BE ADMINISTERED . ATIVAN UNUSED . - AIDAN
--- NOTE | 2020-01-28 20:42 | NUR ---
DR LONG WAS CONTACTED REGARDING ABG PH 7.452 CO2 27.8 HCO3 19.0 BE -3.4 PO2 68.2 AND RR OF 30-40s PT CURRENTLY ON BIPAP 07/03 f 16 100% PT WILL BE TRANSFERRING TO ICU AND WE WILL INTUBATE PER DR LONG ONCE PT ARRIVES TO ICU I WILL ALSO NOTIFY ED MD FOR INTUBATION
[2020-01-28] MEDS: LATANOPROST 0.005% OP 2.5 ML BTL OP SCH (21:00)
[2020-01-28] MEDS ORDERED: PROPOFOL 1000 MG/100 ML PREMIX 100 ML IV ONE (21:11)
[2020-01-28] MEDS ORDERED: INTUBATION KIT MC ONE (21:12)
--- NOTE | 2020-01-28 21:49 | NUR ---
INTUBATE BY ER DOC AND ER STAFF , FILTER TIP INSPECTOR PRESENT AND ASSIST OUR NEEDS
--- NOTE | 2020-01-28 22:03 | NUR ---
STANISLAV GIVEN TIV ORDERED - WILL CONT. TO MONITOR .
--- NOTE | 2020-01-28 22:40 | NUR ---
NGT INSERTED - WILL ORDER CXR - TO CONFIRM THE NGT PLACEMENT . [facility] CATH TO BE INSERTED TO ICU - ANTICIPATES ALL NEEDS FOR TRANSFER TO ICU .
--- NOTE | 2020-01-28 22:44 | NUR ---
NOTIFIED PATIENT'S LOBO REGARDING PATIENT STATUS. PATIENT'S AWARE THAT PATIENT WAS TRANSFER TO ICU FOR CLOSE MONITORING.
[2020-01-28] MEDS ORDERED: ETOMIDATE 20 MG/10 ML VIAL IVP SCH (23:00)
[2020-01-28] MEDS ORDERED: ROCURONIUM 50 MG/5 ML VIAL IV SCH (23:00)
--- NOTE | 2020-01-28 23:05 | NUR ---
PT INTUBATED AND TRANSFERRED TO ICU BED 4 PT TOLERATED WELL. ETT 7.5 SECURED AT 23CM W/ AMBU AT BEDSIDE AND VENT PLUGGED INTO RED OUTLET. VENT SETTINGS ACVC 500 +8, f [address] 100% [address] LONG AWARE OF SETTINGS AND PROVIDED VERBAL ORDER ABG 1H POST INTUBATION. WILL CONTINUE TO MONITOR.
--- NOTE | 2020-01-28 23:10 | NUR ---
RECEIVED REPORT FROM KATHARINA ROSENBERG. PT HAS ETT TO VENT ON 100% FIO2, VOLUME CONTROL. NGT TO R NARES NOTED, CLAMPED. PERIPHERAL IV TO BILATERAL ARMS NOTED. PT SEDATED ON PROPOFOL DRIP. SKIN INTACT. WILL CONTINUE TO OBSERVE. Addendum: 02/02/20 at 0830 by Weston Kimball RN dry weight 81 kg
[2020-01-29] VITALS (103 sets, daily range): BP systolic 74–182; BP diastolic 39–126
--- NOTE | 2020-01-29 | NUR ---
NATALIIA BY RT - HE ALSO SUUGGESTING FOR ABG - DR ARLEY MONTEIRO WITH THAT . RT CHECK THE BI PAP - FOR CLOSELY WATCH . Addendum: 01/29/20 at 0024 by Loyda Harrell RN THE TIME OF THE ABOVE NURSE'S NOTE IS AN ERROR ENTRY INSTEAD OF Raji - AIDAN
[2020-01-29] MEDS: LORazepam 2 MG/ML VIAL IVP PRN ×2 (00:40→05:43)
--- NOTE | 2020-01-29 01:00 | NUR ---
ABG DRAWN AND REPORTED BACK TO DR LONG PT CURRENTLY ON ACVC 500 +8 f 24 100% INFORMED DR LONG PT SAT CURRENTLY MID/HIGH 80s AND MAY NEED TO TITRATE PEEP TO OBTAIN SPO2 >90 AND I MAY NEED TO CHANGE TO PC DR LONG AGREED IF PIP REMAINS HIGH
[2020-01-29] MEDS: PROPOFOL 1000 MG/100 ML PREMIX 100 ML IV PRN ×3 (02:30→21:29)
--- NOTE | 2020-01-29 03:33 | NUR ---
PT SEDATED RASS -3, TOLERATING VENT SETTINGS 94% O2 SAT @ THIS TIME 86 HR VS 110/70.
[2020-01-29] MEDS: PIPERACILLIN/TAZOBACTAM 3.375 GM in DEXTROSE 5% 50 ML IV SCH ×3 (03:41→17:19)
--- NOTE | 2020-01-29 05:00 | NUR ---
FLACC 0; PT REPOSITIONED. NO S/S OF ACUTE DISTRESS NOTED. RASS-3. WILL CONTINUE TO OBSERVE.
[2020-01-29] MEDS ORDERED: PIPERACILLIN/TAZOBACTAM 3.375 GM VIAL IV ONE (05:21)
--- NOTE | 2020-01-29 06:00 | NUR ---
WRIGHT CATH DRAINED, 1200 ML OUT CLEAR YELLOW URINE
[2020-01-29] MEDS: BLOOD GLUCOSE MONITORING 1 DEV DEV FS SCH ×4 (06:47→20:30)
[2020-01-29] MEDS: INSULIN LISPRO SLIDING SCALE 100 UNITS/ML VIAL SUBQ PRN ×4 (06:49→20:41)
--- NOTE | 2020-01-29 06:50 | NUR ---
DR HESTER, @ BEDSIDE.
--- NOTE | 2020-01-29 07:15 | NUR ---
REPORT GIVEN TO DAYSHIFT FOR CONTINUITY OF CARE
--- NOTE | 2020-01-29 07:35 | NUR ---
RECEIVED REPORT FROM NIGHT RN. ETT TO VENT AC/VC ON 100% FIO2, PEEP 8, RATE 24, TV 500. FLACC 0, RESPIRATIONS ARE DEEP, RAPID AND LABORED WITH EPISODES OF COUGHING. NGT TO R NARES NOTED, CLAMPED. PERIPHERAL IV TO BILATERAL ARMS NOTED. PT SEDATED ON PROPOFOL DRIP 30 MCG. WRIGHT INTACT AND PATENT, DRAINING CLEAR YELLOW URINE. SKIN INTACT. WILL CONTINUE TO MONITOR
[2020-01-29] MEDS: ALBUTEROL SULFATE/IPRATROPIU 3 ML SOL IH SCH ×2 (08:39→19:00)
--- NOTE | 2020-01-29 08:45 | NUR ---
PT RECEIVING HIGH PRESSURES ON AC/VC RATE 24, VT 500, PEEP +8. SWITCHED MODES TO AC/PRVC RATE 24, VT 500, PEEP +8, 100%. PT PEAK PRESSURES IMPROVED AND RECEIVING VOLUMES 450-550. NOTIFIED DR. ESPINOZA AND WILL FOLLOW UP WITH ABG.
[2020-01-29] MEDS: ENOXAPARIN 40 MG/0.4 ML SYR SUBQ SCH ×2 (09:00→20:44)
[2020-01-29] MEDS: ZINC SULF 220 MG CAP PO SCH (09:00)
[2020-01-29] MEDS: PANTOPRAZOLE 40 MG INJ VIAL IVP SCH (09:00)
[2020-01-29] MEDS: ASCORBIC ACID 500 MG TAB PO SCH (09:00)
--- NOTE | 2020-01-29 09:00 | NUR ---
NGT INTACT AND PATENT. NO RESIDUALS NOTED. DUE MORNING MEDS GIVEN VIA NGT. ORAL CARE AND WRIGHT CARE DONE. REPOSITIONED PT
[2020-01-29 09:18] LABS: ANION GAP 17.1 (8-16); CARBON DIOXIDE 23.8 mmol/L (21-32); POTASSIUM 3.9 mmol/L (3.5-5.1)
[2020-01-29 09:24] LABS: BASOPHILS # (AUTO) 0.1 K/uL (0.00-0.22); BASOPHILS % (AUTO) 0.4 % (0.0-2.0); EOSINOPHILS % (AUTO) 0.2 % (0.0-4.0); HEMATOCRIT 40.7 % (36-52); HEMOGLOBIN 13.2 g/dL (12.0-18.0); LYMPHOCYTES # (AUTO) 0.9 K/uL (2.0-11.5); LYMPHOCYTES % (AUTO) 4.9 % (20.5-51.1); MEAN CORPUSCULAR HEMOGLOBIN 30 pg (27-31); MEAN CORPUSCULAR HGB CONC 33 g/dL (33-37); MEAN CORPUSCULAR VOLUME 91.5 fL (80-94); MONOCYTES # (AUTO) 0.9 K/uL (0.8-1.0); MONOCYTES % (AUTO) 5.1 % (1.7-9.3); NEUTROPHILS % (AUTO) 89.4 % (42.2-75.2); PLATELET COUNT (AUTO) 302 K/uL (140-450); RED BLOOD CELL COUNT(AUTO) 4.44 MIL/uL (4.20-6.10); RED CELL DISTRIBUTION WIDTH 15.1 % (11.6-13.7); WHITE BLOOD COUNT (AUTO) 17.9 K/uL (4.8-10.8)
[2020-01-29] MEDS: fentaNYL citrate 2.5 MG in NACL 0.9% 200 ML IV PRN (09:45)
--- NOTE | 2020-01-29 09:45 | NUR ---
FENTANYL DRIP STARTED ORDERED
[2020-01-29] MEDS: DEXT 5% /NACL 0.9% 1,000 ML IV SCH ×2 (10:06→19:10)
--- NOTE | 2020-01-29 13:48 | NUR ---
RASS -3, NO APPARENT DISTRESS, FLACC 0. PT REPOSITIONED
[2020-01-29] MEDS: REMDESIVIR (EUA) 100 MG in NACL 0.9% 100 ML IV SCH (14:53)
--- NOTE | 2020-01-29 15:45 | NUR ---
PT BEGAN TO DESAT. INCREASED PEEP FROM +8 TO +10. SAT STABLE AT 92%. WILL CONTINUE TO MONITOR.
--- NOTE | 2020-01-29 17:00 | NUR ---
VENTILATOR SCREEN WENT BLACK WITH A CONSTANT ALARM. SWAPPED WITH A NEW VENT WITH THE SAME DOCUMENTED SETTINGS. NO SIGNS OF RESPIRATORY DISTRESS. WILL CONTINUE TO MONITOR.
--- NOTE | 2020-01-29 20:00 | NUR ---
RECEIVED REPORT FROM DAY SHIFT RN. DRY WEIGHT 81 KG. PATIENT IS ETT TO VENT. RASS -3. A/C PRVC FIO2: 100%, TV: 500, RATE: 24, AND PEEP: 10. ST, S1S2 NOTED. MANDO PICC LINE PATENT, NO INFILTRATION/FLEBITIS NOTED. FENTANYL AND PROPOFOL HELD AT THIS TIME DUE TO LOW BP. D5NS @100ML/HR. LT HAND 22G HEPLOCK, PATENT, NO INFILTRATION/FLEBITIS NOTED. RT AC 20G HEPLOCK, PATENT, NO INFILTRATION/FLEBITIS NOTED. LUNG SOUNDS: CLEAR BILATERAL UPPER LOBES AND DIMINISHED LOWER BILATERAL LOBES. BOWEL SOUNDS ACTIVE IN ALL 4 QUADRANTS, NG-TUBE IN RT NARE, RESIDUAL [address], CLEAN DRY AND INTACT. BILATERAL WRIST RESTRAINTS, NO S/S OF INJURIES NOTED. SKIN INTACT. SAFETY MEASURES IN PLACE, BED LOW AND LOCKED. SIDE RAILS UP. CALL LIGHT WITHIN REACH. WILL CONTINUE TO MONITOR.
[2020-01-29] MEDS: LATANOPROST 0.005% OP 2.5 ML BTL OP SCH (21:00)
--- NOTE | 2020-01-29 22:00 | NUR ---
PATIENT IS STABLE, NO SIGNS OR SYMPTOMS OF DISTRESS NOTED. WILL CONTINUE TO MONITOR.
[2020-01-30] VITALS (101 sets, daily range): BP systolic 98–185; BP diastolic 3–96
--- NOTE | 2020-01-30 | NUR ---
PATIENT REMAINS STABLE, NO S/S OF DISTRESS NOTED. SAFETY MEASURES IN PLACE. WILL CONTINUE CURRENT PLAN OF CARE.
--- NOTE | 2020-01-30 02:00 | NUR ---
NO SIGNS OR SYMPTOMS OF DISTRESS OBSERVED, SAFETY MEASURES IN PLACE, BED LOW AND LOCKED, SIDE RAILS UP. CALL LIGHT WITHIN REACH. WILL CONTINUE MONITORING AND CONTINUE PLAN OF CARE.
[2020-01-30] MEDS: PROPOFOL 1000 MG/100 ML PREMIX 100 ML IV PRN ×2 (02:58→14:00)
[2020-01-30] MEDS: DEXT 5% /NACL 0.9% 1,000 ML IV SCH ×2 (04:00→17:23)
--- NOTE | 2020-01-30 04:00 | NUR ---
MORNING CARE GIVEN, WRIGHT CARE GIVEN, NEW LINEN AND BLANKETS. NO S/S OF DISTRESS. REPOSITIONED PATIENT. RESTRAINTS OBSERVED: NO S/S OF INJURY NOTED. WILL CONTINUE TO MONITOR.
[2020-01-30] MEDS: PIPERACILLIN/TAZOBACTAM 3.375 GM in DEXTROSE 5% 50 ML IV SCH ×5 (06:00→17:51)
--- NOTE | 2020-01-30 06:00 | NUR ---
PATIENT REMAINS STABLE, NO S/S OF DISTRESS NOTED. SAFETY MEASURES IN PLACE: BED, LOW AND LOCKED, SIDE RAILS UP. REPOSITIONED PT. PT TOLERATED IT WELL. WILL CONTINUE TO MONITOR.
[2020-01-30 06:14] LABS: ANION GAP 10.3 (8-16); CARBON DIOXIDE 26.8 mmol/L (21-32); POTASSIUM 4.1 mmol/L (3.5-5.1)
[2020-01-30 06:17] LABS: MAGNESIUM 2.3 mg/dL (1.8-2.4); PHOSPHORUS 3.1 mg/dL (2.5-4.9)
[2020-01-30] MEDS: fentaNYL citrate 2.5 MG in NACL 0.9% 200 ML IV PRN (06:25)
--- NOTE | 2020-01-30 07:00 | NUR ---
RECEIVED HANDOFF FROM ENVIRONMENTAL AUDITOR RN. PT IS RASS -3. PT IS ON ETT TO VENT ON PRVC MODE WITH FIO2 100%, VT 500 R 24, PEEP 10, R 24. PT IS CURRENTLY A FIB RVR ON THE MONITOR. PER ENVIRONMENTAL AUDITOR RN, PT WAS SR UNTIL ABOUT 20 MIN PRIOR. PT HAS GLUCERNA 1.2 ORDERED WITH A GOAL RATE OF 10 ML/HR WITH FWF OF 200 ML Q4H. THE STARTING RATE IS 10 ML/HR. PT HAS NG TUBE IN THE RIGHT NARE. FOR ACCESS, PT HAS MANDO PICC LINE, LH 22G, AND RAC 20 G. FENTANYL IS RUNNING AT 2 MCG/KG/HR, D5 1/2 NS AT 100 ML/HR, PROPOFOL AT 20 MCG/KG/HR. PT WEIGHT IS 81 KG. WRIGHT CATHETER IS IN PLACE. HOB 30 DEG WITH BED IN LOW, LOCKED POSITION. WILL CONTINUE TO MONITOR.
[2020-01-30 07:20] LABS: EOSINOPHILS % (AUTO) 0.1 % (0.0-4.0); HEMATOCRIT 36.4 % (36-52); HEMOGLOBIN 11.7 g/dL (12.0-18.0); LYMPHOCYTES # (AUTO) 0.4 K/uL (2.0-11.5); LYMPHOCYTES % (AUTO) 3.9 % (20.5-51.1); MEAN CORPUSCULAR HEMOGLOBIN 30 pg (27-31); MEAN CORPUSCULAR HGB CONC 32 g/dL (33-37); MEAN CORPUSCULAR VOLUME 92.7 fL (80-94); MONOCYTES # (AUTO) 0.8 K/uL (0.8-1.0); MONOCYTES % (AUTO) 6.5 % (1.7-9.3); NEUTROPHILS # (AUTO) 10.4 K/uL (1.8-7.7); NEUTROPHILS % (AUTO) 89.5 % (42.2-75.2); PLATELET COUNT (AUTO) 220 K/uL (140-450); RED BLOOD CELL COUNT(AUTO) 3.92 MIL/uL (4.20-6.10); RED CELL DISTRIBUTION WIDTH 15.4 % (11.6-13.7); WHITE BLOOD COUNT (AUTO) 11.6 K/uL (4.8-10.8)
[2020-01-30] MEDS: BLOOD GLUCOSE MONITORING 1 DEV DEV FS SCH ×4 (07:26→21:00)
[2020-01-30] MEDS: ALBUTEROL SULFATE/IPRATROPIU 3 ML SOL IH SCH ×3 (07:27→19:36)
--- NOTE | 2020-01-30 07:40 | NUR ---
DR. HESTER AT BEDSIDE, MADE AWARE OF AFIB RVR, RECEIVED ORDERS.
--- NOTE | 2020-01-30 07:50 | NUR ---
PT CONVERTED BACK TO SR. DR. HESTER MADE AWARE. PER DR. HESTER, HOLD PREVIOUS ORDERS.
[2020-01-30] MEDS: PANTOPRAZOLE 40 MG INJ VIAL IVP SCH (08:24)
[2020-01-30] MEDS: ASCORBIC ACID 500 MG TAB PO SCH (08:24)
[2020-01-30] MEDS: ZINC SULF 220 MG CAP PO SCH (08:25)
[2020-01-30] MEDS: ENOXAPARIN 40 MG/0.4 ML SYR SUBQ SCH ×2 (08:25→20:53)
[2020-01-30] MEDS: INSULIN LISPRO SLIDING SCALE 100 UNITS/ML VIAL SUBQ PRN ×3 (08:26→17:25)
--- NOTE | 2020-01-30 09:17 | NUR ---
MEDICATIONS ADMINISTERED PER ORDER, PT TOLERATED WELL. NG TUBE PLACEMENT CONFIRMED BY AUSCULTATION. FEEDING STARTED AT 10 ML/HR WITH FWF 200 ML Q 4HR. VAP ORAL CARE, CHG BATH, AND WRIGHT CARE PROVIDED. TEMPERATURE 96.7 TEMPORALLY. WILL CONTINUE TO MONITOR.
[2020-01-30] MEDS ORDERED: ETOMIDATE 20 MG/10 ML VIAL IVP ONE (12:00)
[2020-01-30] MEDS ORDERED: ROCURONIUM 50 MG/5 ML VIAL IV ONE (12:00)
--- NOTE | 2020-01-30 12:15 | NUR ---
MEDICATIONS ADMINISTERED PER ORDER. BS 376, 10 UNITS OF INSULIN ADMINISTERED. VAP ORAL CARE PROVIDED. TEMPERATURE 97.6 TEMPORALLY. PT REPOSITIONED. WILL CONTINUE TO MONITOR.
--- NOTE | 2020-01-30 13:00 | NUR ---
5 ML RESIDUAL FROM NG TUBE FEED, INCREASED RATE TO 20 ML/HR
--- NOTE | 2020-01-30 15:00 | NUR ---
BS 339, 8 UNITS OF INSULIN ADMINISTERED FOR COVERAGE. TEMPERATURE 97.1 TEMPORALLY. PT REPOSITIONED. PREVENTATIVE OPTIFOAM SACRAL DRESSING PLACED. VAP ORAL CARE PROVIDED. WILL CONTINUE TO MONITOR. Addendum: 01/30/20 at 1727 by Joselyn Hernandez RN RN SUPPOSED TO BE 1700
--- NOTE | 2020-01-30 17:00 | NUR ---
BS 339, 8 UNITS OF INSULIN ADMINISTERED FOR COVERAGE. TEMPERATURE 97.1 TEMPORALLY. PT REPOSITIONED. PREVENTATIVE OPTIFOAM SACRAL DRESSING PLACED. VAP ORAL CARE PROVIDED. WILL CONTINUE TO MONITOR.
--- NOTE | 2020-01-30 18:18 | NUR ---
5 ML RESIDUAL FROM TUBE FEED, INCREASED RATE TO 30 ML/HR
--- NOTE | 2020-01-30 19:21 | NUR ---
HANDOFF GIVEN TO DIRECTOR OF NURSES REGISTRY RN FOR CONTINUITY OF CARE.
--- NOTE | 2020-01-30 19:58 | NUR ---
RECEIVED PATIENT FROM DAY SHIFT ON DOCUMENTED SETTINGS. VENT PLUGGED INTO RED OUTLET. BMV AT BEDSIDE. ETT SECURED. ALARMS SET. TX GIVEN. SX NO SECRETIONS OUT OF PATIENT. NO RESPIRATORY DISTRESS NOTED. WILL CONTINUE TO MONITOR IN CHANGES OF RESPIRATORY STATUS
--- NOTE | 2020-01-30 20:00 | NUR ---
RECEIVED WINDOW REPORT REPORT FROM DAY SHIFT RN. DRY WEIGHT 81 KG. PATIENT IS ETT TO VENT. RASS -3. A/C PRVC FIO2: 100%, TV: 500, RATE: 24, AND PEEP: 10. SR, S1S2 NOTED. MANDO PICC LINE PATENT, NO INFILTRATION/FLEBITIS NOTED. RUNNING FENTANYL AT 2MCG/KG/HR (12.96 ML/HR), PROPOFOL AT 20 MCG/KG/MIN (9.72ML/HR) AND D5NS @100ML/HR. LT HAND 22G SALINE LOCK, PATENT, NO INFILTRATION/FLEBITIS NOTED. RT AC 20G SALINE LOCK, PATENT, NO INFILTRATION/FLEBITIS NOTED. LUNG SOUNDS: DIMINISHED IN UPPER AND LOWER LOBES BILATERALLY. CREPITUS NOTED TO RT CHEST AND RT NECK. BOWEL SOUNDS ACTIVE IN ALL 4 QUADRANTS, NG-TUBE IN RT NARE, RESIDUAL 65 ML. RUNNING VITAL AF @ 30 ML/HR WITH FWF: [address] IN [address], DRAINING TO GRAVITY. BILATERAL WRIST RESTRAINTS, NO S/S OF INJURIES NOTED. SKIN INTACT. REPOSITIONED PATIENT WITH PILLOWS. SAFETY MEASURES IN PLACE, BED LOW AND LOCKED. SIDE RAILS UP. CALL LIGHT WITHIN REACH. WILL CONTINUE TO MONITOR.
[2020-01-30] MEDS: LATANOPROST 0.005% OP 2.5 ML BTL OP SCH (21:00)
--- NOTE | 2020-01-30 21:21 | NUR ---
SPOKE TO DR. CARABALLO ABOUT PT'S CONDITION. CREPITUS OBSERVED TO THE RIGHT CHEST THAT EXTENDS TO THE RIGHT NECK. MD ORDERED CHEST X-RAY IN AM. WILL CONTINUE TO MONITOR PT.
--- NOTE | 2020-01-30 22:00 | NUR ---
TURNED AND REPOSITIONED PT. PRESSURE AREAS OFF LOADED. WILL CONTINUE TO MONITOR.
[2020-01-31] VITALS (105 sets, daily range): BP systolic 91–176; BP diastolic 49–121
--- NOTE | 2020-01-31 | NUR ---
FEEDING RATE INCREASED TO GOAL RATE OF 40MLS/HR. 45 RESIDUALS NOTED. PT TOLERATING FEEDING WELL. ORAL CARE PROVIDED. WILL CONTINUE TO MONITOR.
[2020-01-31] MEDS: PIPERACILLIN/TAZOBACTAM 3.375 GM in DEXTROSE 5% 50 ML IV SCH ×4 (00:33→18:44)
[2020-01-31] MEDS: ALBUTEROL SULFATE/IPRATROPIU 3 ML SOL IH SCH ×3 (01:00→19:00)
[2020-01-31] MEDS: PROPOFOL 1000 MG/100 ML PREMIX 100 ML IV PRN ×4 (01:42→19:50)
[2020-01-31] MEDS: fentaNYL citrate 2.5 MG in NACL 0.9% 200 ML IV PRN ×2 (01:44→17:11)
[2020-01-31] MEDS: DEXT 5% /NACL 0.9% 1,000 ML IV SCH ×2 (04:00→17:23)
[2020-01-31] MEDS: ACETAMINOPHEN 325 MG TAB PO PRN ×2 (04:30→12:25)
--- NOTE | 2020-01-31 04:30 | NUR ---
PT TEMP: 100.4. TYLENOL GIVEN ORDERED. TEPID SPONGE BATH PROVIDED. MORNING CARE, WRIGHT CARE, PERINEAL CARE DONE. WILL CONTINUE TO MONITOR.
--- NOTE | 2020-01-31 05:30 | NUR ---
LATEST TEMP: 99.1. NO DISTRESS OBSERVED AT THIS TIME. WILL CONTINUE TO MONITOR PT.
--- NOTE | 2020-01-31 06:15 | NUR ---
SERIALS LIBRARIAN AT BEDSIDE.
[2020-01-31 06:18] LABS: BASOPHILS % (AUTO) 0.3 % (0.0-2.0); EOSINOPHILS % (AUTO) 0.1 % (0.0-4.0); HEMOGLOBIN 12.2 g/dL (12.0-18.0); LYMPHOCYTES # (AUTO) 0.4 K/uL (2.0-11.5); LYMPHOCYTES % (AUTO) 2.7 % (20.5-51.1); MEAN CORPUSCULAR HEMOGLOBIN 30 pg (27-31); MEAN CORPUSCULAR HGB CONC 32 g/dL (33-37); MEAN CORPUSCULAR VOLUME 93.1 fL (80-94); MONOCYTES % (AUTO) 6.4 % (1.7-9.3); NEUTROPHILS # (AUTO) 14.6 K/uL (1.8-7.7); NEUTROPHILS % (AUTO) 90.5 % (42.2-75.2); PLATELET COUNT (AUTO) 285 K/uL (140-450); RED BLOOD CELL COUNT(AUTO) 4.08 MIL/uL (4.20-6.10); RED CELL DISTRIBUTION WIDTH 15.6 % (11.6-13.7); WHITE BLOOD COUNT (AUTO) 16.1 K/uL (4.8-10.8)
[2020-01-31 06:35] LABS: ANION GAP 14.7 (8-16); CARBON DIOXIDE 24.2 mmol/L (21-32); POTASSIUM 3.9 mmol/L (3.5-5.1)
--- NOTE | 2020-01-31 07:26 | NUR ---
HANDOFF FROM SIPHONER RN. PT IS RASS -3. PT IS ON ETT TO VENT PRVC MODE WITH [id number]%, VT 500, R 24, PEEP 10. PT HAS NG TUBE TO R NARE, WITH GLURCERNA 1.2 RUNNING AT 40 ML/HR 200 MLQ4 HR. PT IS SR TO ST. FOR ACCESS PT HAS MANDO PICC, LH 22 G, RAC 20 G. FENTANYL IS RUNNING A 2.5 MCG/KG/HR, D5NS AT 100 ML/HR, PROPOFOL AT 30 MCG/KG/HR. PT HAS WRIGHT CATHETER IN PLACE. HOB TO 30 DEG, WITH BED IN LOW, LOCKED POSITION. WILL CONTINUE TO MONITOR.
[2020-01-31] MEDS: BLOOD GLUCOSE MONITORING 1 DEV DEV FS SCH ×4 (07:30→20:49)
--- NOTE | 2020-01-31 08:05 | NUR ---
RT LISA AT BEDSIDE. PT DESATTING TO 50s. PT ALREADY ON 100% FIO2. HR IN THE 110-140S. PT PRONED TO PROMOTE BETTER OXYGENATION. PT NOW SATTING IN THE 70s. PAGED DR. HESTER'S GROUP.
--- NOTE | 2020-01-31 08:20 | NUR ---
PER DR. ANGUIANO'S RECOMMENDATION, VENT SETTINGS CHANGED BY RT TO ACPC WITH 100% FIO2, R 24, PEEP OF 16. PT NOW SATTING IN THE MID 80S. REQUESTED CARDIOLOGY TO ADDRESS THE HR. PAGED DR. LI.
--- NOTE | 2020-01-31 08:24 | NUR ---
PT DESAT IN 50'S. PLACED PT IN PRONE POSITION. DR CARABALLO NOTIFIED AND ORDERED CHANGE TO PRESSURE CONTROL. PT PLACED ON PC 12, RATE 24, +16, 100%. ABG TO FOLLOW.
--- NOTE | 2020-01-31 08:25 | NUR ---
DR. LONG AT BEDSIDE. PER DR. LONG, STAT EKG ORDERED. RT NOTIFIED AND AWAITING RESULT.
--- NOTE | 2020-01-31 08:45 | NUR ---
DR. LI RETURNED CALL, ORDERS RECEIVED.
[2020-01-31] MEDS: ZINC SULF 220 MG CAP PO SCH (08:58)
[2020-01-31] MEDS: ASCORBIC ACID 500 MG TAB PO SCH (08:58)
[2020-01-31] MEDS: PANTOPRAZOLE 40 MG INJ VIAL IVP SCH (08:59)
[2020-01-31] MEDS ORDERED: DIGOXIN 0.25 MG/ML AMP IV SCH (09:00)
[2020-01-31] MEDS: ENOXAPARIN 40 MG/0.4 ML SYR SUBQ SCH (09:05)
[2020-01-31] MEDS: METOPROLOL 5 MG/5 ML VIAL IV PRN (09:06)
--- NOTE | 2020-01-31 09:15 | NUR ---
PT. ADMITTED WITH ACUTE HYPOXIC RESPIRATORY FAILURE 2/2 COVID PNA, ETT TO VENT. NGT FEEDING. CHANGE OF CONDITION WITH LOW VIOLETTE SCALE AT RISK, CONTINUE TO FOLLOW PRESSURE INJURY PREVENTION INTERVENTIONS. -TURN AND REPOSITION PATIENT Q 2H -ASSESS AND MONITOR SKIN CONDITION DURING POSITION CHANGE -OFFLOAD BILATERAL HEELS BY PLACING PILLOWS UNDER CALVES AT ALL TIMES, UNLESS OTHERWISE CONTRAINDICATED -PRESSURE REDISTRIBUTION BY PLACING PILLOWS AND OFFLOADING SACRALCOCCYX -KEEP SKIN CLEAN AND DRY AT ALL TIMES.
--- NOTE | 2020-01-31 09:40 | NUR ---
MEDICATIONS ADMINISTERED PER ORDER. PT TOLERATED WELL. HR NOW 118, SATTING 100%. TEMPERATURE 100.3, PRN TYLENOL NOT DUE YET. 5 ML RESIDUAL FROM NG TUBE. TUBE FEED WAS HELD WHEN PT PRONED. VAP ORAL CARE PROVIDED. CHG BATH PROVIDED. BS 371, 10 UNITS INSULIN ADMINISTERED. WILL CONTINUE TO MONITOR.
[2020-01-31] MEDS: INSULIN LISPRO SLIDING SCALE 100 UNITS/ML VIAL SUBQ PRN ×4 (09:44→20:48)
--- NOTE | 2020-01-31 10:15 | NUR ---
APPROXIMATELY ONE HOUR AFTER ADMINISTRATION OF DIGOXIN AND METOPROLOL, HR NOW 118, BP 110/49, O2 SAT 100%. WILL CONTINUE TO MONITOR.
--- NOTE | 2020-01-31 11:40 | NUR ---
TELEPHONE READ BACK ABG RESULTS TO DR. CARABALLO. STATES TO KEEP VENT SETTING THE SAME THEN TITRATE PEEP DOWN TO +12, THEN START TITRATING FIO2.
--- NOTE | 2020-01-31 12:29 | NUR ---
MEDICATIONS ADMINISTERED PER ORDER. BS 290, 6 UNITS OF INSULIN ADMINISTERED. VAP ORAL CARE PROVIDED. TEMPERATURE 100.0 TEMPORALLY. PRN TYLENOL ADMINISTERED. WILL CONTINUE TO MONITOR.
--- NOTE | 2020-01-31 13:21 | NUR ---
01/31/20 RD FOLLOW UP COMPLETED PLEASE REFER TO NUTRITION ASSESSMENT UNDER CARE ACTIVITY FOR ESTIMATED NUTRITIONAL NEEDS. 1. RECOMMEND GLUCERNA 1.2 @ 70 ML/HR X 8 HOURS WITH PROSOURCE 4X DAY -THIS WILL PROVIDE 912 KCAL AND 93 GM OF PROTEIN, MEETING 48% OF KCAL NEEDS AND 100% OF PROTEIN NEEDS 2. CONTACT RD IF PATIENTS PRONE POSITION TIME CHANGES, TO ADJUST TUBE FEEDING RATE 3. CONTINUE FREE WATER FLUSH OF 200 ML Q4H PER MD 4. PROPOFOL WILL ADD CALORIE INTAKE BY 1.1 KCAL/ML 5. RD TO FOLLOW-UP 2-3 DAYS, HIGH RISK JESE CHAMBERS RD
[2020-01-31] MEDS ORDERED: ENOXAPARIN 40 MG/0.4 ML SYR SUBQ SCH (15:30)
[2020-01-31] MEDS ORDERED: AMIODARONE 150 MG in DEXTROSE 5% 100 ML IV SCH (15:30)
[2020-01-31] MEDS: AMIODARONE 450 MG in DEXTROSE 5% 250 ML IV SCH (17:07)
[2020-01-31] MEDS: metFORMIN 500 MG TAB PO SCH (17:08)
--- NOTE | 2020-01-31 17:30 | NUR ---
BS 257, 6 UNITS OF INSULIN ADMINISTERED. TEMPERATURE 98.7 TEMPORALLY.
--- NOTE | 2020-01-31 19:20 | NUR ---
HANDOFF GIVEN TO BACK TENDER FOURDRINIER FOR CONTINUITY OF CARE.
--- NOTE | 2020-01-31 19:21 | NUR ---
RECIEVED ENDORSEMENT FROM DAY SHIFT RN, PT SEDATED RASS -3, PT IN PRONE POSITION, SR ON MONITOR, PERIPHERAL PULSES PALPABLE, LUNGS DIMINISHED AND CRACKLES, ETT TO VENT ACPC FIO2 100% RATE 24 PEEP 12, SKIN INTACT-WARM AND DRY TO TOUCH, NGT TO TF VIA RIGHT NARE HELD D/T PRONE POSITION, FC IN PLACE, URINE YELLOW AND CLEAR, RAC 20 GAUGE SALINE LOCK, MANDO PICC LINE AND LH 22 GAUGE RUNNING AMIODARONE 1 MG/MIN, D5 HALF NS 100 MLS/HR, PROPOFOL 50MCG/KG/MIN AND FENTANYL 2.5 MCG/KG/MIN, PT AFEBRILE, SHOWING NO SIGNS OF ACUTE DISTRESS, SAFETY MEASURES IN PLACE, WILL CONTINUE TO MONITOR
[2020-01-31] MEDS: METOPROLOL 25 MG TAB PO SCH (20:16)
[2020-01-31] MEDS ORDERED: CRUSHER, PILL MC ONE (20:30)
[2020-01-31] MEDS: ENOXAPARIN 80 MG/0.8 ML SYR SUBQ SCH (20:49)
[2020-01-31] MEDS: LATANOPROST 0.005% OP 2.5 ML BTL OP SCH (20:50)
[2020-01-31] MEDS ORDERED: LOVENOX 1MG/KG Q12H SUBQ SCH (21:00)
--- NOTE | 2020-01-31 21:30 | NUR ---
PT IN PRONE POSITION, AFEBRILE, ADMINISTERED 2100H MEDICATIONS PER ORDERED, BLOOD GLUCOSE 281, ADMINISTERED 6 UNITS HUMALOG PER PROTOCOL, PT SHOWING NO SIGNS OF ACUTE DISTRESS, SAFETY MEASURES IN PLACE, WILL CONTINUE TO MONITOR
--- NOTE | 2020-01-31 23:15 | NUR ---
HUNG NEW BOTTLE OF PROPOFOL AT 50 MCG/KG/MIN
[2020-02-01] VITALS (104 sets, daily range): BP systolic 14–186; BP diastolic 50–105
[2020-02-01] MEDS: PROPOFOL 1000 MG/100 ML PREMIX 100 ML IV PRN ×4 (00:05→18:14)
[2020-02-01] MEDS: PIPERACILLIN/TAZOBACTAM 3.375 GM in DEXTROSE 5% 50 ML IV SCH ×4 (00:05→18:11)
[2020-02-01] MEDS: ALBUTEROL SULFATE/IPRATROPIU 3 ML SOL IH SCH ×4 (01:00→19:00)
--- NOTE | 2020-02-01 02:10 | NUR ---
REPOSITIONED PT TO SUPINE POSITION, PT AFEBRILE, ORAL CARE AND SUCTIONING PERFORMED, STARTED FEEDING LUCERNA 1.2 70ML/HR FWF 200ML Q4H, PT SHOWING NO SIGNS OF ACUTE DISTRESS, SAFETY MEASURES IN PLACE, WILL CONTINUE TO MONITOR
--- NOTE | 2020-02-01 04:21 | NUR ---
REPOSITIONED PT, ORAL CARE AND SUCTIONING PERFORMED, MORNING CARE GIVEN, CHANGED PT SHEETS, PT AFEBRILE AND SHOWING NO SIGNS OF ACUTE DISTRESS, SAFETY MEASURES IN PLACE, WILL CONTINUE TO MONITOR
[2020-02-01] MEDS: DEXT 5% /NACL 0.9% 1,000 ML IV SCH ×3 (05:15→17:04)
[2020-02-01 06:03] LABS: BASOPHILS % (AUTO) 0.1 % (0.0-2.0); HEMATOCRIT 37.8 % (36-52); HEMOGLOBIN 11.7 g/dL (12.0-18.0); LYMPHOCYTES # (AUTO) 0.8 K/uL (2.0-11.5); LYMPHOCYTES % (AUTO) 4.5 % (20.5-51.1); MEAN CORPUSCULAR HEMOGLOBIN 30 pg (27-31); MEAN CORPUSCULAR HGB CONC 31 g/dL (33-37); MEAN CORPUSCULAR VOLUME 96.1 fL (80-94); MONOCYTES # (AUTO) 0.5 K/uL (0.8-1.0); MONOCYTES % (AUTO) 2.8 % (1.7-9.3); NEUTROPHILS # (AUTO) 15.9 K/uL (1.8-7.7); NEUTROPHILS % (AUTO) 92.6 % (42.2-75.2); PLATELET COUNT (AUTO) 192 K/uL (140-450); RED BLOOD CELL COUNT(AUTO) 3.93 MIL/uL (4.20-6.10); RED CELL DISTRIBUTION WIDTH 16.1 % (11.6-13.7); WHITE BLOOD COUNT (AUTO) 17.2 K/uL (4.8-10.8)
[2020-02-01 06:19] LABS: ANION GAP 14.3 (8-16); CARBON DIOXIDE 23.7 mmol/L (21-32); CREATININE 1.6 mg/dL (0.6-1.3)
[2020-02-01] MEDS: BLOOD GLUCOSE MONITORING 1 DEV DEV FS SCH ×4 (06:51→21:00)
[2020-02-01] MEDS: INSULIN LISPRO SLIDING SCALE 100 UNITS/ML VIAL SUBQ PRN ×4 (06:52→22:36)
--- NOTE | 2020-02-01 06:52 | NUR ---
BLOOD GLUCOSE 329, ADMINISTERED 8 UNITS OF HUMALOG PER PROTOCOL
[2020-02-01] MEDS: AMIODARONE 450 MG in DEXTROSE 5% 250 ML IV SCH (07:38)
--- NOTE | 2020-02-01 07:40 | NUR ---
RECEIVED WINDOW-SIDE REPORT FROM SUPPLIES PACKER NURSE RADHA FOR CONTINUITY OF CARE. PATIENT IS LYING ON RIGHT LATERAL POSITION, RASS -3, DRY WEIGHT 81 KG, FLACC 0. RESPIRATION EVEN AND UNLABORED ON ETT TO VENT: AC/PC FIO2 AT 100%, RATE 24, PEEP 12, SPO2 AT 100% AT THIS TIME. NO SIGNS OF ACUTE DISTRESS NOTED. L HAND 22G AND RAC 20G SALINE LOCK, MANDO IN PLACE, CLEAN AND INTACT, RUNNING PROPOFOL AT 40 MCG/KG/MIN, AMIODARONE AT 0.5 MG/MIN, FENTANYL AT 2.5 MCG/KG/HR, AND D5NS AT 100 ML/HR. NGT RIGHT NARE IN PLACE, GLUCERNA 1.2 RUNNING AT 40 ML/HR THIS TIME. SKIN DRY AND CLAEN, WRIGHT IN PLACE, DRAINING WITH GRAVITY. PILLOWS USED TO UPLOADED PRESSURE AND BILATERAL HEEL PROTECTORS IN PLACE. SENIOR PROGRAM MANAGER IN PLACE. SAFETY MEASURES IN PLACE. BED IN LOW POSITION, HOB ELEVATED 35 DEGREE, BED LOCKED.
--- NOTE | 2020-02-01 07:41 | NUR ---
ENDORSED TO DAY SHIFT RN FOR CONTINUITY OF CARE
[2020-02-01] MEDS: metFORMIN 500 MG TAB PO SCH ×2 (09:04→17:04)
[2020-02-01] MEDS: fentaNYL citrate 2.5 MG in NACL 0.9% 200 ML IV PRN (09:07)
[2020-02-01] MEDS: ZINC SULF 220 MG CAP PO SCH (09:08)
[2020-02-01] MEDS: ASCORBIC ACID 500 MG TAB PO SCH (09:08)
[2020-02-01] MEDS: ASPIRIN 81 MG TAB.CHEW PO SCH (09:09)
[2020-02-01] MEDS: METOPROLOL 25 MG TAB PO SCH ×2 (09:09→21:00)
[2020-02-01] MEDS: PANTOPRAZOLE 40 MG INJ VIAL IVP SCH (09:10)
[2020-02-01] MEDS: ENOXAPARIN 80 MG/0.8 ML SYR SUBQ SCH ×2 (09:16→21:44)
--- NOTE | 2020-02-01 09:44 | NUR ---
CHECKED NGT FEEDING RESIDUAL AND RECEIVED NONE. ADMINISTERED SCHEDULED AM MEDS, FLUSH BEFORE AND AFTER MEDS. PROVIDED HYGIENE CARE, CHG BATH, ORAL CARE, WRIGHT CARE, AND ORAL CARE, PATIENT TOLERATED FAIR. WITH ASSIST, REPOSITIONED PATIENT, AND OFFLOADED PRESSURE WITH PILLOWS. PRINTING ROLLER HANDLER IN PLACE. SAFETY MEASURES IN PLACE. HOB ELEVATED 35 DEGREE, BED IN LOW POSITION AND BED LOCKED.
--- NOTE | 2020-02-01 11:33 | NUR ---
CHECKED BLOOD GLUCOSE AND RECEIVED 355, 10 UNITS HUMALOG PROVIDED. ADMINISTERED SCHEDULED ZOSYN. APPLIED HEART SHAPED OPTIFOAM ON KNEE FOR SKIN PROTECTION FOR PRONING. PROVIDED ORAL CARE AND HYGIENE CARE, WILL PRONE PATIENT. SEATING UPHOLSTERER IN PLACE. SAFETY MEASURES IN PLACE. BED IN LOW POSITION, HOB ELEVATED 35 DEGREE.
--- NOTE | 2020-02-01 13:45 | NUR ---
WITH ASSIST FROM RT, PRONE PATIENT, AND POSITIONED PATIENT COMFORTABLY,USED PILLOWS TO UPLOADED PRESSURE, HEART SHAPED OPTIFOAM APPLIED ON BOTH KNEE FOR SKIN PROTECTION. NGT FEEDING HELD. EMD TEACHER IN PLACE. SAFETY MEASURES IN PLACE. HOB ELEVATED 35 DEGREE, BED IN LOW POSITION AND BED LOCKED.
--- NOTE | 2020-02-01 13:45 | NUR ---
PT PRONED SXN MODERATE AMT OF THICK WHITE SECRETIONS
[2020-02-01] MEDS: METOPROLOL 5 MG/5 ML VIAL IV PRN (15:54)
--- NOTE | 2020-02-01 15:54 | NUR ---
DR LAU IS ROUNDING ON PATIENT. BP 186/91 PULSE 91, ADMINISTERED PRN METOPROLOL VIA IVP.
--- NOTE | 2020-02-01 16:37 | NUR ---
BLOOD GLUCOSE 353, ADMINISTERED 10 UNIT OF HUMALOG FOR COVERAGE. REPOSITIONED PATIENT'S ARM, AND PERFORMED ROM, PATIENT TOLERATED FAIR. RESPIRATION EVEN AND UNLABORED ON ETT TO VENT, SPO2 AT 100%, FLACC 0. NO SIGNS OF ACUTE DISTRESS NOTED. GRINDING MACHINE OPERATOR IN PLACE. SAFETY MEASURES IN PLACE.
--- NOTE | 2020-02-01 17:05 | NUR ---
RECHECKED BLOOD PRESSURE 160/83 PULSE95. ADMINISTERED SCHEDULED MED, FLUSH BEFORE AND AFTER MEDS.
--- NOTE | 2020-02-01 18:14 | NUR ---
ADMINISTERED SCHEDULED ZOSYN AND REPOSITIONED PATIENT'S ARMS TO PERFORM ROM, PATIENT TOLERATED FAIR, FLACC 0. NO SIGNS OF ACUTE DISTRESS NOTED SOLAR SALES MANAGER IN PLACE. SAFETY MEASURES IN PLACE.
--- NOTE | 2020-02-01 19:05 | NUR ---
ENDORSED PATIENT TO WATERFRONT DIRECTOR NURSE RADHA FOR CONTINUITY OF CARE. PATIENT IS LYING ON PRONE POSITION COMFORTABLY, LAUNDRY MACHINE MECHANIC IN PLACE. SAFETY MEASURES IN PLACE. PATIENT IS IN STABLE CONDITION.
--- NOTE | 2020-02-01 19:06 | NUR ---
RECIEVED ENDORSEMENT FROM DAY SHIFT RN, PT SEDATED RASS -3, PT IN PRONE POSITION, SR ON MONITOR, PERIPHERAL PULSES PALPABLE, LUNGS DIMINISHED AND CRACKLES, ETT TO VENT ACPC FIO2 100% RATE 24 PEEP 12, SKIN INTACT-WARM AND DRY TO TOUCH, NGT TO TF VIA RIGHT NARE HELD D/T PRONE POSITION, FC IN PLACE, URINE YELLOW AND CLEAR, RAC 20 GAUGE SALINE LOCK, MANDO PICC LINE AND LH 22 GAUGE RUNNING AMIODARONE 0.5 MG/MIN, D5 HALF NS 100 MLS/HR, PROPOFOL 40MCG/KG/MIN AND FENTANYL 2.5 MCG/KG/MIN, PT AFEBRILE, SHOWING NO SIGNS OF ACUTE DISTRESS, SAFETY MEASURES IN PLACE, WILL CONTINUE TO MONITOR
[2020-02-01] MEDS: LATANOPROST 0.005% OP 2.5 ML BTL OP SCH (21:39)
--- NOTE | 2020-02-01 21:44 | NUR ---
LOPRESSOR NOT GIVEN D/T SYSTOLIC BP <100
--- NOTE | 2020-02-01 23:55 | NUR ---
FIO2 TITRATED FROM 100% TO 90% AND TOLERATING WELL W/ SPO2 CURRENTLY 100%. PT RECIEVED ON PC 12+12, f24. VENT PLUGGED INTO RED OUTLET W/ AMBU AT BEDSIDE Addendum: 02/02/20 at 0008 by Panchito Heard Jr RT 19:00 Tx NOT GIVEN DUE TO RT BEING UN-AVAILABLE AT THIS TIME
[2020-02-02] VITALS (76 sets, daily range): BP systolic 54–134; BP diastolic 24–72
--- NOTE | 2020-02-02 00:15 | NUR ---
LASHA NEW BAG OF ZOSYN 3.375 GM
[2020-02-02] MEDS: PIPERACILLIN/TAZOBACTAM 3.375 GM in DEXTROSE 5% 50 ML IV SCH ×4 (00:26→17:36)
[2020-02-02] MEDS: PROPOFOL 1000 MG/100 ML PREMIX 100 ML IV PRN (00:36)
[2020-02-02] MEDS: ALBUTEROL SULFATE/IPRATROPIU 3 ML SOL IH SCH ×3 (01:00→19:26)
--- NOTE | 2020-02-02 02:30 | NUR ---
PT IN PRONE POSITION STILL, AFEBRILE, PT SHOWING NO SIGNS OF ACUTE DISTRESS, SAFETY MEASURE SIN PLACE, WILL CONTINUE TO MONITOR
[2020-02-02] MEDS: fentaNYL citrate 2.5 MG in NACL 0.9% 200 ML IV PRN ×2 (02:45→17:34)
[2020-02-02] MEDS: DEXT 5% /NACL 0.9% 1,000 ML IV SCH ×3 (03:46→23:10)
[2020-02-02 05:53] LABS: HEMATOCRIT 40.4 % (36-52); HEMOGLOBIN 12.2 g/dL (12.0-18.0); MEAN CORPUSCULAR HEMOGLOBIN 30 pg (27-31); MEAN CORPUSCULAR HGB CONC 30 g/dL (33-37); MEAN CORPUSCULAR VOLUME 99.2 fL (80-94); PLATELET COUNT (AUTO) 231 K/uL (140-450); RED BLOOD CELL COUNT(AUTO) 4.07 MIL/uL (4.20-6.10); RED CELL DISTRIBUTION WIDTH 16.7 % (11.6-13.7)
[2020-02-02 06:03] LABS: WHITE BLOOD COUNT (AUTO) 26.2 K/uL (4.8-10.8)
[2020-02-02 06:40] LABS: LYMPHOCYTES % (MANUAL) 3 % (20-46); MONOCYTES % (MANUAL) 3 % (5-12)
[2020-02-02 06:47] LABS: ANION GAP 12.2 (8-16); CARBON DIOXIDE 26.4 mmol/L (21-32); CREATININE 2.6 mg/dL (0.6-1.3); POTASSIUM 4.6 mmol/L (3.5-5.1)
[2020-02-02] MEDS: BLOOD GLUCOSE MONITORING 1 DEV DEV FS SCH ×4 (07:02→21:00)
[2020-02-02] MEDS: INSULIN LISPRO SLIDING SCALE 100 UNITS/ML VIAL SUBQ PRN ×3 (07:03→21:00)
--- NOTE | 2020-02-02 07:30 | NUR ---
RECEIVED REPORT RADHA PT HAS LOW BP 54/[address] FRANCIS NOTIFIED LEVOPHED STARTED AN TITRATE PROTOCAL. PT ET TO VENT . NGT FEEDING WITH GLUCERNA 1.2 .WRIGHT CATH DRAIN SMALL AMOUNT OF DARK URINE..
[2020-02-02] MEDS: metFORMIN 500 MG TAB PO SCH ×2 (08:00→17:35)
--- NOTE | 2020-02-02 08:10 | NUR ---
ENDORSED TO DAY SHIFT RN FOR CONTINIUTY OF CARE
--- NOTE | 2020-02-02 08:25 | NUR ---
RECEIVED ON A myfab5SCAPE R860 VENTILATOR PLUGGED INTO RED OUTLET TOLERATING WELL WITHOUT ADVERSE REACTIONS NOTED TO AN ENDOTRACHEAL TUBE #7.5 SECURED AT 24cm TEETH/GUM LINE CUFF PRESSURE CHECKED NOTED AMBU BAG AT BEDSIDE LOC SEDATED RESTING WELL GOOD CHEST RISE AND AERATION THROUGHOUT BILATERAL LUNG BURCH AIRWAY PATENT EXPIRATORY Vt LESS THAN 6ml/kg INCREASED Tinsp TO [id number] TO MAINTAIN EXPIRATORY Vt EQUAL/GREATER THAN 6ml/kg NOW AT +450ml KEILY/RN NOTIFIED RN ALSO AWARE OF BLOOD PRESSURE
--- NOTE | 2020-02-02 08:30 | NUR ---
DECREASE PROPOFOL. TO 35 MCG.
[2020-02-02] MEDS: ASPIRIN 81 MG TAB.CHEW PO SCH (08:42)
[2020-02-02] MEDS: PANTOPRAZOLE 40 MG INJ VIAL IVP SCH (08:42)
[2020-02-02] MEDS: ASCORBIC ACID 500 MG TAB PO SCH (08:43)
[2020-02-02] MEDS: ENOXAPARIN 80 MG/0.8 ML SYR SUBQ SCH ×2 (08:44→21:00)
[2020-02-02] MEDS: ZINC SULF 220 MG CAP PO SCH (09:00)
[2020-02-02] MEDS: METOPROLOL 25 MG TAB PO SCH ×2 (09:00→21:00)
--- NOTE | 2020-02-02 09:00 | NUR ---
HOLD METOPROLOL DUE TO LOW B/P ON LEVOPHED IV DRIP.
--- NOTE | 2020-02-02 10:07 | NUR ---
NO DISTRESS NOTED EQUAL CHEST RISE IMPROVED SATURATION TO 90%
--- NOTE | 2020-02-02 11:48 | NUR ---
NO APPARENT DISTRESS NOTED GOOD CHEST RISE
--- NOTE | 2020-02-02 12:00 | NUR ---
BLOOD GLUCOSE 151. INSULIN COVER ORDERED.
--- NOTE | 2020-02-02 13:47 | NUR ---
PT HAS BEEN PRONED WITH RN KEILY AND RN ALEJANDRA AND RT CED AT BEDSIDE
[2020-02-02] MEDS: NOREPINEPHRINE 8 MG in DEXTROSE 5% 250 ML IV PRN (16:18)
--- NOTE | 2020-02-02 16:20 | NUR ---
TOLERATING PRONE POSITION WELL WITHOUT COMPLICATIONS EQUAL CHEST
--- NOTE | 2020-02-02 17:00 | NUR ---
BLOOD GLUCOSE 206 INSULIN COVER ORDERED.
--- NOTE | 2020-02-02 19:06 | NUR ---
REPORT GIVE TO RADHA IV FLUID D5 NSAT 100ML/HR LEVOPHED AT 20 MCG VERSED AT 2.5 MCG. F/C DRAIN SCAN AMOUT OF URINE.
[2020-02-02] MEDS: LATANOPROST 0.005% OP 2.5 ML BTL OP SCH (21:00)
[2020-02-03] VITALS (101 sets, daily range): BP systolic 113–181; BP diastolic 51–89
--- NOTE | 2020-02-03 05:49 | NUR ---
ALL PAPER CHART IN PATIENTS FOLDER
[2020-02-03] MEDS: PIPERACILLIN/TAZOBACTAM 3.375 GM in DEXTROSE 5% 50 ML IV SCH ×6 (06:00→23:57)
[2020-02-03] MEDS: INSULIN LISPRO SLIDING SCALE 100 UNITS/ML VIAL SUBQ PRN ×4 (06:40→21:00)
[2020-02-03] MEDS: BLOOD GLUCOSE MONITORING 1 DEV DEV FS SCH ×4 (06:40→21:00)
[2020-02-03 06:42] LABS: HEMATOCRIT 32.5 % (36-52); HEMOGLOBIN 10.4 g/dL (12.0-18.0); MEAN CORPUSCULAR HEMOGLOBIN 30 pg (27-31); MEAN CORPUSCULAR HGB CONC 32 g/dL (33-37); MEAN CORPUSCULAR VOLUME 93.6 fL (80-94); NEUTROPHILS % (AUTO) 91.8 % (42.2-75.2); PLATELET COUNT (AUTO) 130 K/uL (140-450); RED BLOOD CELL COUNT(AUTO) 3.47 MIL/uL (4.20-6.10); RED CELL DISTRIBUTION WIDTH 15.6 % (11.6-13.7); WHITE BLOOD COUNT (AUTO) 16.9 K/uL (4.8-10.8)
[2020-02-03 06:43] LABS: BASOPHILS % (AUTO) 0.2 % (0.0-2.0); LYMPHOCYTES # (AUTO) 0.6 K/uL (2.0-11.5); LYMPHOCYTES % (AUTO) 3.5 % (20.5-51.1); MONOCYTES # (AUTO) 0.8 K/uL (0.8-1.0); MONOCYTES % (AUTO) 4.5 % (1.7-9.3); NEUTROPHILS # (AUTO) 15.5 K/uL (1.8-7.7)
[2020-02-03 06:59] LABS: POTASSIUM 5.4 mmol/L (3.5-5.1)
[2020-02-03 07:00] LABS: ANION GAP 20.1 (8-16); CARBON DIOXIDE 19.3 mmol/L (21-32)
[2020-02-03 07:01] LABS: CREATININE 4.3 mg/dL (0.6-1.3)
--- NOTE | 2020-02-03 07:18 | NUR ---
ENDORSED TO DAY SHIFT RN FOR CONTINUITY OF CARE
[2020-02-03] MEDS: ALBUTEROL SULFATE/IPRATROPIU 3 ML SOL IH SCH ×3 (07:30→19:12)
--- NOTE | 2020-02-03 07:30 | NUR ---
RECEIVED REPORT FROM NIGHT NURSE; PT SEDATED RASS-3 ON PROPOFOL DRIP @ 20 MCG/KG/MIN DRY WEIGHT 81 KG, FENTANYL DRIP @ 2.5 MCG/KG/HR. PERRL , SLUGGISH 4+, SR WITH PVCS TRIGEMINY; +2 RADIAL/PEDAL BILATERAL PULSES, +3 PITTING EDEMA NOTED. ABDOMEN SOFT NON DISTENDED, ROUND, ACTIVE BOWEL SOUNDS NGT R NARES, GLUCERNA RUNNING@ 70 HR, H2O FLUSH Q4 HOUR 200 ML. LBM 02/02. WRIGHT CATH IN PLACE, OLIGURIC DARK BROWN DRAINAGE NOTED, CATHETER FLUSHED. REDNESS NOTED TO UPPER LIP AREA, UNDERNEATH ANCHOR FAST, DRESSING APPLIED. BLANCHABLE REDNESS TO BUTTOCKS AREA. PICC LINE TO RUPPER ARM NOTED. LEVOPHED DRIP @ 15 MCG/MIN, IVF @ 100 ML/HR. BED LOCKED IN LOWEST POSITION, SAFETY PRECAUTIONS IN PLACE. FLACC 0.
[2020-02-03] MEDS: NOREPINEPHRINE 8 MG in DEXTROSE 5% 250 ML IV PRN (08:18)
[2020-02-03] MEDS: PROPOFOL 1000 MG/100 ML PREMIX 100 ML IV PRN ×2 (08:19→18:20)
[2020-02-03] MEDS: PANTOPRAZOLE 40 MG INJ VIAL IVP SCH (08:24)
[2020-02-03] MEDS: ASPIRIN 81 MG TAB.CHEW PO SCH (08:24)
[2020-02-03] MEDS: METOPROLOL 25 MG TAB PO SCH ×2 (08:24→21:00)
[2020-02-03] MEDS: ASCORBIC ACID 500 MG TAB PO SCH (08:25)
[2020-02-03] MEDS: ZINC SULF 220 MG CAP PO SCH (08:25)
[2020-02-03] MEDS: ENOXAPARIN 80 MG/0.8 ML SYR SUBQ SCH (08:28)
[2020-02-03] MEDS ORDERED: CRUSHER, PILL MC ONE (08:42)
[2020-02-03] MEDS ORDERED: SODIUM ZIRCONIUM CYCLOSILICATE 10 GM POWD.PACK PO SCH (09:00)
[2020-02-03] MEDS ORDERED: BUMETANIDE 1 MG/4 ML VIAL IV SCH ×2 (09:00→09:50)
--- NOTE | 2020-02-03 10:00 | NUR ---
DR EMANUEL @ BEDSIDE; MD MADE AWARE OF OLIGURIA, CATHETER FLUSHED AND NO URINE OUTPUT SINCE, AND +3 PITTING EDEMA, NEW ORDERS FOR BUMEX AND LOKELMA TODAY, IF NO URINE OUTPUT; [facility] FOR HD TREATMENT TOMORROW, HD CATHETER PLACEMENT WITH DR DUPONT CONSULTING.
[2020-02-03] MEDS ORDERED: NACL 0.9% IV SCH (11:30)
[2020-02-03] MEDS ORDERED: BUMETANIDE IV SCH (11:30)
--- NOTE | 2020-02-03 12:00 | NUR ---
DR CARABALLO @ BEDSIDE; PT CONDITION UPDATED. STATED TO KEEP PEEP @ 12, TITRATE FIO2 TO KEEP SPO2>88%. WILL CONTINUE TO OBSERVE.
[2020-02-03] MEDS: fentaNYL citrate 2.5 MG in NACL 0.9% 200 ML IV PRN ×2 (13:07→23:56)
--- NOTE | 2020-02-03 13:34 | NUR ---
PT SUSTAINING BLOOD PRESSURE; ABLE TO TITRATE LEVOPHED DRIP DOWN, CURRENTLY @ 6 MCG/MIN, WILL CONTINUE TO TITRATE PER PROTOCOL. 153/80 99 94% SPO2 R 24. WILL CONTINUE TO OBSERVE.
--- NOTE | 2020-02-03 14:34 | NUR ---
02/03/20 RD FOLLOW UP COMPLETED PLEASE REFER TO NUTRITION ASSESSMENT UNDER CARE ACTIVITY FOR ESTIMATED NUTRITIONAL NEEDS. 1. RECOMMEND NEPRO 1.8 @ 65 ML/HR X 8 HOURS WITH PROSOURCE TID -THIS WILL PROVIDE 1116 KCAL AND 87 GM OF PROTEIN, MEETING 59% OF KCAL NEEDS AND 96% OF PROTEIN NEEDS 2. RECOMMEND FREE WATER FLUSH OF 360 ML Q12H (738 ML H20/DAY) 3. PROPOFOL WILL ADD CALORIE INTAKE BY 1.1 KCAL/ML 4. RD TO FOLLOW-UP 2-3 DAYS, HIGH RISK JESE CHAMBERS RD
--- NOTE | 2020-02-03 17:52 | NUR ---
PATIENT MOVED TO PRONE POSITION. ETT SECURED AND PATENT.
--- NOTE | 2020-02-03 18:00 | NUR ---
PT OFF LEVOPHED DRIP, LOW URINE OUTPUT FOR SHIFT. FLACC 0 NO ACUTE DISTRESS NOTED. WILL CONTINUE TO OBSERVE.
--- NOTE | 2020-02-03 18:45 | NUR ---
REPORT GIVEN TO CLINICAL SYSTEMS ANALYST FOR CONTINUITY OF CARE.
--- NOTE | 2020-02-03 19:00 | NUR ---
REPORT RECEIVED FROM AM SHIFT RN, SEDATED, RASS -3. ETT TO VENT. AC/PC FIO2 60%, TV 500, RATE 24, PEEP 12. SINUS RHYTHM ON MONITOR. IV SITE, MANDO PICC LINE INFUSING PROPOFOL 15MCG/KG/MIN, FENTANYL 1.5MCG/MIN, BUMEX 4ML/HR AND LHAND 22G, R SHOULDER 20G, INTACT, PATENT GOOD BLOOD RETURN. OGT IN PLACE. PITTING EDEMA 3+, SKIN NON INTACT, SEE WOUND ASSESSMENT. WRIGHT CATHETER IN PLACE DRAINING NATA URINE. DRY WEIGHT 80KG. PT IN PRONE POSITION, BED LOCKED IN LOWEST POSITION. WILL CONTINUE TO MONITOR.
--- NOTE | 2020-02-03 19:31 | NUR ---
RECEIVED PATIENT FROM DAY SHIFT IN PRONE POSITION. ON DOCUMENTED SETTINGS. VENT PLUGGED INTO RED OUTLET. BMV AT BEDSIDE. ETT SECURED. ALARMS SET. AIRWAY PATENT. NO RESPIRATORY DISTRESS NOTED. WILL CONT TO MONITOR
--- NOTE | 2020-02-03 20:01 | NUR ---
READ ABG RESULTS TO DR. PETERS. TOLD ME TO PASS ON TO NURSE TO CONTACT NEPHROLOGY. GUEST RELATIONS ASSOCIATE JORDANA MURGUIA.
[2020-02-03] MEDS: LATANOPROST 0.005% OP 2.5 ML BTL OP SCH (21:00)
[2020-02-03] MEDS: AMIODARONE 200 MG TAB GT SCH (21:00)
--- NOTE | 2020-02-03 23:00 | NUR ---
PT CLEANED, HAD 1 BM. PT REPOSITIONED TO SUPINE FOR DIALYSIS CATHETER INSERTION.
--- NOTE | 2020-02-03 23:10 | NUR ---
PT PLACED BACK IN SUPINE. AW PATENT. ETT SECURED. NO DISTRESS. WILL CONT TO MONITOR
--- NOTE | 2020-02-03 23:22 | NUR ---
DR DUPONT AT BEDSIDE PERFORMING DIALYSIS CATHETER INSERTION.
[2020-02-04] VITALS (105 sets, daily range): BP systolic 85–183; BP diastolic 51–92
[2020-02-04] MEDS: ALBUTEROL SULFATE/IPRATROPIU 3 ML SOL IH SCH ×4 (00:45→19:36)
--- NOTE | 2020-02-04 01:00 | NUR ---
PT HAS EYES CLOSED, RESPIRATIONS EVEN AND UNLABORED. CHEST RISE IS SYMMETRICAL. HOB 30 DEGREES. WILL CONTINUE TO MONITOR.
--- NOTE | 2020-02-04 03:50 | NUR ---
ORAL CARE PROVIDED, WRIGHT CARE PROVIDED. PT REPOSITIONED. WILL CONTINUE TO MONITOR.
--- NOTE | 2020-02-04 05:30 | NUR ---
PT HAS EYES CLOSED, SEDATED RASS -3, RESPIRATIONS EVEN AND UNLABORED. CHEST RISE IS SYMMETRICAL. HOB 30 DEGREES. WILL CONTINUE TO MONITOR.
[2020-02-04] MEDS: PIPERACILLIN/TAZOBACTAM 3.375 GM in DEXTROSE 5% 50 ML IV SCH ×4 (05:46→23:51)
--- NOTE | 2020-02-04 07:15 | NUR ---
RECEIVED HANDOFF FROM PLUG SAW OPERATOR RN. PT IS RASS -3. PT IS ON ETT TO VENT WITH ACPC FIO2 100%, R 24, PEEP 12. PT HAS NG TUBE TO R NARE BUT FEED IS HELD. PT IS SR ON THE MONITOR AT THIS TIME. PT HAS MANDO PICC, LH 22 G, R SHOULDER, AND R NECK MARY CATH. PT HAS PROPOFOL RUNNING AT 15 MCG/KG/MIN, BUMEX AT 4 ML/HR, FENTANYL AT 1.5 MCG/KG/HR, AND D5 NS AT 5 ML/HR TO KEEP VEIN OPEN. PT HAS WRIGHT CATHETER IN PLACE. PT IS SUPINE AT THIS TIME, WITH HOB AT 30 DEG, BED IN LOW, LOCKED POSITION. WILL CONTINUE TO MONITOR.
--- NOTE | 2020-02-04 07:25 | NUR ---
REPORT GIVEN TO BENNETT ROSENBERG FOR CONTINUITY OF CARE
[2020-02-04] MEDS: BLOOD GLUCOSE MONITORING 1 DEV DEV FS SCH ×4 (07:30→20:54)
--- NOTE | 2020-02-04 07:55 | NUR ---
DR. PETERS AT BEDSIDE TO SEE PT. PER DR. PETERS, PUT IN FNS CONSULT ORDER SO DIET CAN BE CHANGED TO NEPRO (PER NEPHROLOGY'S REQUEST).
[2020-02-04 08:06] LABS: BASOPHILS % (AUTO) 0.3 % (0.0-2.0); HEMOGLOBIN 10.4 g/dL (12.0-18.0); LYMPHOCYTES # (AUTO) 0.5 K/uL (2.0-11.5); LYMPHOCYTES % (AUTO) 3.6 % (20.5-51.1); MEAN CORPUSCULAR HEMOGLOBIN 30 pg (27-31); MEAN CORPUSCULAR HGB CONC 33 g/dL (33-37); MONOCYTES # (AUTO) 0.6 K/uL (0.8-1.0); MONOCYTES % (AUTO) 4.6 % (1.7-9.3); NEUTROPHILS # (AUTO) 12.2 K/uL (1.8-7.7); NEUTROPHILS % (AUTO) 91.5 % (42.2-75.2); PLATELET COUNT (AUTO) 93 K/uL (140-450); RED BLOOD CELL COUNT(AUTO) 3.48 MIL/uL (4.20-6.10); RED CELL DISTRIBUTION WIDTH 15.7 % (11.6-13.7); WHITE BLOOD COUNT (AUTO) 13.3 K/uL (4.8-10.8)
[2020-02-04] MEDS: PROPOFOL 1000 MG/100 ML PREMIX 100 ML IV PRN ×2 (08:32→22:22)
--- NOTE | 2020-02-04 08:42 | NUR ---
FNS CONSULT RECEIVED TO CHANGE FORMULA TO NEPRO. GAVE RN TAMMIE RECOMMENDATIONS FOR NEPRO 1.8 @ 65 ML/HR X 8 HOURS WITH PROSOURCE TID AND FREE WATER FLUSH OF 360 ML Q12H (730 ML/DAY) OR PER MD. -THIS WILL PROVIDE 1116 KCAL AND 87 GM OF PROTEIN, MEETING 59% OF KCAL NEEDS AND 96% OF PROTEIN NEEDS
[2020-02-04 08:45] LABS: ANION GAP 22.9 (8-16); CARBON DIOXIDE 17.4 mmol/L (21-32); MAGNESIUM 2.4 mg/dL (1.8-2.4); PHOSPHORUS 7.7 mg/dL (2.5-4.9); POTASSIUM 5.3 mmol/L (3.5-5.1); TOTAL BILIRUBIN 0.6 mg/dL (0.0-1.0)
[2020-02-04] MEDS: ENOXAPARIN 80 MG/0.8 ML SYR SUBQ SCH (09:00)
[2020-02-04] MEDS: ASPIRIN 81 MG TAB.CHEW PO SCH (09:00)
[2020-02-04] MEDS: METOPROLOL 25 MG TAB PO SCH ×2 (09:00→20:55)
[2020-02-04] MEDS: ZINC SULF 220 MG CAP PO SCH (09:13)
[2020-02-04] MEDS: PANTOPRAZOLE 40 MG INJ VIAL IVP SCH (09:13)
[2020-02-04] MEDS: ASCORBIC ACID 500 MG TAB PO SCH (09:13)
[2020-02-04] MEDS: AMIODARONE 200 MG TAB GT SCH ×2 (09:16→20:55)
[2020-02-04 09:24] LABS: CREATININE 5.1 mg/dL (0.6-1.3)
--- NOTE | 2020-02-04 10:00 | NUR ---
MEDICATIONS ADMINISTERED PER ORDER. PT TOLERATED WELL. BS 195, 2 UNITS OF INSULIN ADMINISTERED. VAP ORAL CARE, CHG BATH, AND WRIGHT CARE PROVIDED. TEMPERATURE 97.1 TEMPORALLY. WILL CONTINUE TO MONITOR.
[2020-02-04] MEDS: INSULIN LISPRO SLIDING SCALE 100 UNITS/ML VIAL SUBQ PRN ×4 (10:10→21:04)
--- NOTE | 2020-02-04 12:00 | NUR ---
BS 197, 2 UNITS OF INSULIN ADMINISTERED.
--- NOTE | 2020-02-04 13:22 | NUR ---
WOUND CARE CONSULT DONE: MEDICAL RELATED SKIN BREAKS FROM ETT ABAD -RIGHT MAXILLA (CHEEK) DTI 7X2CM SUPERFICIAL DEPTH -LEFT MAXILLA (CHEEK) DTI 5X3 CM SUPERFICIAL DEPTH -PREMAXILLA (SKIN IN BETWEEN UPPER LIP AND BELOW NOSE) DTI 1X3 CM SUPERFICIAL DEPTH POC DISCUSSED WITH PRIMARY RN AND RT WITH DIFFERENT TYPE OF ETT DEVICE TO PREVENT FURTHER BREAKS. PT STILL HAVE ORDER FOR PRONE POSITIONING, INSTRUCT PRIMARY RN CONTINUE TO FOLLOW OFFLOADING AND REPOSITION PROTOCOL. RECOMMENDATIONS: -CLEANSE PRE MAXILLA, RIGHT AND LEFT MAXILLA SKIN BREAKS WITH NS. ARYAN LENZ, APPLY VERSATEL DRESSING TODAY AND Q5 DAYS WITH ASSISTANCE OF RT TO HOLD ET. Addendum: 02/04/20 at 1335 by Armando Carmichael RN (Grace) EDIT: FOOD AND BEVERAGE OPERATIONS MANAGER RELATED SKIN BREAKS
--- NOTE | 2020-02-04 17:00 | NUR ---
BS 186, 2 UNITS INSULIN ADMINISTERED FOR COVERAGE. VAP ORAL CARE. PT REPOSITIONED. 0 ML OUTPUT FROM WRIGHT CATH. TEMPERATURE 97.1 TEMPORALLY.
--- NOTE | 2020-02-04 19:13 | NUR ---
HANDOFF TO UI DEVELOPER WITH ANGULAR JS RN FOR CONTINUITY OF CARE.
--- NOTE | 2020-02-04 19:13 | NUR ---
REPORT RECEIVED FROM AM SHIFT RN, SEDATED, RASS -3. ETT TO VENT. AC/PC FIO2 95%, TV 500, RATE 24, PEEP 12. SINUS RHYTHM ON MONITOR. IV SITES, RIMorenita TIDWELLALEXYS CATH WITH PIGTAIL, MANDO PICC LINE INFUSING PROPOFOL 15MCG/KG/MIN, FENTANYL 1.5MCG/MIN, AND LHAND 22G, R SHOULDER 20G, INTACT, PATENT GOOD BLOOD RETURN. NGT TO FEEDING, 0 RESIDUALS NOTED. PITTING EDEMA 3+, SKIN NON INTACT, SEE WOUND ASSESSMENT. WRIGHT CATHETER IN PLACE. DRY WEIGHT 80KG. HOB 30 DEGREES, BED LOCKED IN LOWEST POSITION. WILL CONTINUE TO MONITOR.
--- NOTE | 2020-02-04 19:36 | NUR ---
RECEIVED PATIENT FROM DAY SHIFT ON PC 28, RATE 24, PEEP 12, 95% FIO2 ETT @ 23 CM. VENTILATOR PLUGGED INTO RED OUTLET. BMV AT BEDSIDE. ETT SECURED WITH ANCHORFAST. ALARMS SET AND AUDIBLE. AIRWAY PATENT. HHN TX GIVEN VIA INLINE. PATIENT IS IN NO RESPIRATORY DISTRESS. WILL CONTINUE TO MONITOR IN CHANGES OF RESPIRATORY STATUS.
[2020-02-04] MEDS: LATANOPROST 0.005% OP 2.5 ML BTL OP SCH (20:55)
--- NOTE | 2020-02-04 21:00 | NUR ---
DR BROOKS IN TO ASSESS PT.
--- NOTE | 2020-02-04 22:22 | NUR ---
HUNG NEW BOTTLE OF PROPOFOL DRIP. RASS -3. WILL CONTINUE TO MONITOR.
[2020-02-05] VITALS (48 sets, daily range): BP systolic 65–177; BP diastolic 32–83
[2020-02-05] MEDS: ALBUTEROL SULFATE/IPRATROPIU 3 ML SOL IH SCH ×2 (00:30→07:03)
--- NOTE | 2020-02-05 00:30 | NUR ---
PT PLACED IN PRONE POSITION. AIRWAY REMAINS PATENT. ETT SECURED. WILL CONTINUE TO MONITOR
--- NOTE | 2020-02-05 00:30 | NUR ---
PT CLEANED, REPOSITIONED INTO PRONE POSITION. WILL CONTINUE TO MONITOR. Addendum: 02/05/20 at 0620 by Raul Lau RN FEEDING HELD
--- NOTE | 2020-02-05 02:45 | NUR ---
PT HAS EYES CLOSED, RESPIRATIONS EVEN AND UNLABORED. CHEST RISE IS SYMMETRICAL. PT IN PRONE POSITION. WILL CONTINUE TO MONITOR.
--- NOTE | 2020-02-05 04:20 | NUR ---
PT HAS EYES CLOSED, RESPIRATIONS EVEN AND UNLABORED. CHEST RISE IS SYMMETRICAL. PT IN PRONE POSITION. WILL CONTINUE TO MONITOR.
[2020-02-05] MEDS ORDERED: LABETALOL 100 MG/20 ML VIAL IVP PRN (04:50)
[2020-02-05] MEDS ORDERED: hydrALAZINE 20 MG/ML VIAL IVP PRN (04:50)
[2020-02-05] MEDS: PIPERACILLIN/TAZOBACTAM 3.375 GM in DEXTROSE 5% 50 ML IV SCH (05:42)
--- NOTE | 2020-02-05 06:21 | NUR ---
PT HAD 1 BM. KAUSHIK CARE PROVIDED. ORAL CARE PROIVDED, SMALL AMOUNT OF BLEEDING NOTED FROM MOUTH. WILL CONTINUE TO MONITOR.
--- NOTE | 2020-02-05 07:09 | NUR ---
REPORT GIVEN TO BENNETT ROSENBERG FOR CONTINUITY OF CARE
--- NOTE | 2020-02-05 07:10 | NUR ---
HANDOFF RECEIVED FROM CLINICAL DATA RESEARCH R. PT IS SEDATED RASS -3. PT IS ETT TO VENT ACPC FIO2 95%, PEEP 12, R 24. PT IS SR ON THE MONITOR. PT HAS NG TUBE TO R NARE. NEPRO IS RUNNING AT 65 ML/HR WITH FWF 360 ML Q 12HR. PT HAS ACCESS AT AMNDO PICC, LH 22 G, R SHOULDER 20 G, AND RIGHT IJ MARY HD CATHETER. PT HAS PROPOFOL RUNNING AT 15 MCG/KG/MIN, FENTANYL AT 1.5 MCG/KG/HR, AND IVF TO KEEP VEIN OPEN AT 5 ML/HR. WEIGHT IS 81 KG. WRIGHT CATHETER IS IN PLACE. PT IS PRONE AT THIS TIME. WILL CONTINUE TO MONITOR.
[2020-02-05] MEDS: BLOOD GLUCOSE MONITORING 1 DEV DEV FS SCH (07:30)
[2020-02-05] MEDS: fentaNYL citrate 2.5 MG in NACL 0.9% 200 ML IV PRN (07:37)
[2020-02-05 08:09] LABS: HEPATITIS A ANTIBODY IGM Negative (Negative); HEPATITIS B CORE AB TOTAL Negative (Negative); HEPATITIS B SURFACE ANTIBODY Non Reactive (.); HEPATITIS B SURFACE ANTIGEN Negative (Negative)
[2020-02-05 08:34] LABS: HEMATOCRIT 29.6 % (36-52); HEMOGLOBIN 9.7 g/dL (12.0-18.0); MEAN CORPUSCULAR HEMOGLOBIN 30 pg (27-31); MEAN CORPUSCULAR HGB CONC 33 g/dL (33-37); PLATELET COUNT (AUTO) 123 K/uL (140-450); RED BLOOD CELL COUNT(AUTO) 3.25 MIL/uL (4.20-6.10); RED CELL DISTRIBUTION WIDTH 15.7 % (11.6-13.7); WHITE BLOOD COUNT (AUTO) 17.5 K/uL (4.8-10.8)
[2020-02-05 08:49] LABS: ANION GAP 25.3 (8-16); CARBON DIOXIDE 13.5 mmol/L (21-32); POTASSIUM 4.8 mmol/L (3.5-5.1)
[2020-02-05] MEDS: ENOXAPARIN 80 MG/0.8 ML SYR SUBQ SCH (09:00)
[2020-02-05] MEDS: METOPROLOL 25 MG TAB PO SCH (09:00)
[2020-02-05] MEDS: ASPIRIN 81 MG TAB.CHEW PO SCH (09:00)
--- NOTE | 2020-02-05 09:25 | NUR ---
PT PLACED IN SUPINE POSITION FOR DIALYSIS. RT AT BEDSIDE FOR AIRWAY SUPPORT. PT TOLERATED WELL. PT HAD 1 LARGE WATERY BOWEL MOVEMENT. PT CHANGED AND CLEANED.
--- NOTE | 2020-02-05 09:25 | NUR ---
PATIENT PLACED IN SUPINE (HEMODIALYSIS) SUCCESSFULLY WITHOUT ADVERSE REACTIONS NOTED
--- NOTE | 2020-02-05 09:30 | NUR ---
TOLERATING SUPINE POSITION WELL WITHOUT COMPLICATIONS SEDATED GOOD CHEST RISE ADN AERATION THROUGHOUT BILATERAL LUNG BURCH AIRWAY PATENT
[2020-02-05 09:31] LABS: CREATININE 4.6 mg/dL (0.6-1.3)
--- NOTE | 2020-02-05 09:35 | NUR ---
RECEIVED ON A [employer] R860 VENTILATOR PLUGGED INTO RED OUTLET TOLERATING WELL WITHOUT ADVERSE REACTIONS NOTED TO AN ENDOTRACHEAL TUBE #7.5 SECURED AT 24cm TEETH/GUM LINE WITH AN ANCHOR FAST CUFF PRESSURE CHECKED NOTED AMBU BAG AT BEDSIDE SUPINE POSITION SEDATED NO DISTRESS NOTED GOOD CHEST RISE AIRWAY PATENT HEMODIALYSIS IN PROGRESS
--- NOTE | 2020-02-05 09:35 | NUR ---
I/E RATIO 1:1.7 DECREASED I/TIME TO 0.60 TO MAINTAIN EXPIRATORY RATIO EQUAL/GREATER THAN 2.0
[2020-02-05] MEDS: ZINC SULF 220 MG CAP PO SCH (09:51)
[2020-02-05] MEDS: PANTOPRAZOLE 40 MG INJ VIAL IVP SCH (09:51)
[2020-02-05] MEDS: ASCORBIC ACID 500 MG TAB PO SCH (09:52)
[2020-02-05] MEDS: AMIODARONE 200 MG TAB GT SCH (09:52)
--- NOTE | 2020-02-05 10:00 | NUR ---
MEDICATIONS ADMINISTERED PER ORDER. VAP ORAL CARE, CHG BATH, WRIGHT CARE PROVIDED. BS 230, 4 UNITS OF INSULIN ADMINISTERED. TEMPERATURE 96.4 AXILLARY. WILL CONTINUE TO MONITOR.
[2020-02-05 10:02] LABS: LYMPHOCYTES % (MANUAL) 5 % (20-46); MONOCYTES % (MANUAL) 2 % (5-12)
--- NOTE | 2020-02-05 10:30 | NUR ---
INVESTMENT MANAGER AT BEDSIDE, DIALYSIS STARTED.
[2020-02-05] MEDS: INSULIN LISPRO SLIDING SCALE 100 UNITS/ML VIAL SUBQ PRN (10:57)
--- NOTE | 2020-02-05 11:18 | NUR ---
CALLED INTO ROOM BY PLATER PRODUCTION FOR LOW HR. HR 47, FEMORAL PULSE PALPATED.
--- NOTE | 2020-02-05 11:20 | NUR ---
BRANCH SALES AND SERVICE REPRESENTATIVE CALLED TO BEDSIDE FOR CARDIOPULMONARY ARREST
--- NOTE | 2020-02-05 11:23 | NUR ---
HR 35, FEMORAL PULSE NO LONGER PRESENT. CODE BLUE INITIATED. REFER TO CODE BLUE SHEET FOR INFORMATION.
--- NOTE | 2020-02-05 11:44 | NUR ---
PT PRONOUNCED BY DR. BAIRD.
--- NOTE | 2020-02-05 11:51 | NUR ---
FAMILY ( LOBO) NOTIFIED OF PATIENT PASSING.
--- NOTE | 2020-02-05 12:50 | NUR ---
[facility] CALLED. PT IS NOT CANDIDATE FOR TISSUE OR ORGAN DONATION.
--- NOTE | 2020-02-05 13:27 | NUR ---
CAMPAIGN ASSOCIATE RELEASED BODY.
--- NOTE | 2020-02-05 16:48 | NUR ---
FAMILY PICKED UP PT BELONGINGS.
--- NOTE | 2020-02-05 19:20 | NUR ---
ERROL/MARIA ISABEL HERE TO [facility] MAKER BODY.
== END 2020-02-05 19:30 | disposition expired | DRG 870 ==
LOC: MED 05:30 → MTU 07:23 → MLD 01-28 21:14 → MIC 01-28 21:15
PROVIDERS: ADMIT Emergency Medicine; ATTEND Emergency Medicine
PROC: XW033E5 Introduction of Remdesivir Anti-infective into Peripheral Vein, Percutaneous Approach, New Technology Group 5 (ICD-10-PCS; 2020-01-25)
PROC: 5A09457 Assistance with Respiratory Ventilation, 24-96 Consecutive Hours, Continuous Positive Airway Pressure (ICD-10-PCS; 2020-01-26)
PROC: XW13325 Transfusion of Convalescent Plasma (Nonautologous) into Peripheral Vein, Percutaneous Approach, New Technology Group 5 (ICD-10-PCS; 2020-01-27)
PROC: 5A1955Z Respiratory Ventilation, Greater than 96 Consecutive Hours (ICD-10-PCS; principal; 2020-01-29)
PROC: 0BH17EZ Insertion of Endotracheal Airway into Trachea, Via Natural or Artificial Opening (ICD-10-PCS; 2020-01-29)
PROC: 02HV33Z Insertion of Infusion Device into Superior Vena Cava, Percutaneous Approach (ICD-10-PCS; 2020-01-29)
PROC: 02HV33Z Insertion of Infusion Device into Superior Vena Cava, Percutaneous Approach (ICD-10-PCS; 2020-02-03)
PROC: B548ZZA Ultrasonography of Superior Vena Cava, Guidance (ICD-10-PCS; 2020-02-03)
PROC: 5A1D70Z Performance of Urinary Filtration, Intermittent, Less than 6 Hours Per Day (ICD-10-PCS; 2020-02-04)
PROC: 5A12012 Performance of Cardiac Output, Single, Manual (ICD-10-PCS; 2020-02-05)
DX: A41.89 Other specified sepsis (principal); U07.1 COVID-19; J12.89 Other viral pneumonia; J96.01 Acute respiratory failure with hypoxia; R65.21 Severe sepsis with septic shock; J69.0 Pneumonitis due to inhalation of food and vomit; N17.9 Acute kidney failure, unspecified; E44.1 Mild protein-calorie malnutrition; E87.0 Hyperosmolality and hypernatremia; I10 Essential (primary) hypertension; I25.10 Atherosclerotic heart disease of native coronary artery without angina pectoris; I46.9 Cardiac arrest, cause unspecified; J98.2 Interstitial emphysema; F11.10 Opioid abuse, uncomplicated; E86.0 Dehydration; E11.65 Type 2 diabetes mellitus with hyperglycemia; I48.91 Unspecified atrial fibrillation; D64.9 Anemia, unspecified; E87.5 Hyperkalemia; D69.6 Thrombocytopenia, unspecified; E83.39 Other disorders of phosphorus metabolism; E83.51 Hypocalcemia; Z68.25 Body mass index [BMI] 25.0-25.9, adult; Z95.1 Presence of aortocoronary bypass graft; Z95.5 Presence of coronary angioplasty implant and graft; Z79.899 Other long term (current) drug therapy
CPT/HCPCS: 36415; 36430; 36600; 71045; 71275; 80048; 80053; 80305; 81001; 82550; 82803; 82948; 83036; 83605; 83615; 83690; 83735; 83880; 84100; 84436; 84439; 84443; 84479; 84484; 85025; 85379; 85610; 85651; 85730; 86140; 86704; 86706; 86708; 86709; 86803; 86886; 86900; 86901; 87040; 87070; 87081; 87086; 87205; 87340; 87804; 92950; 93005; 94003; 94640; 94660; 94664; 96365; 96367; 99291; C1758; C9113; J0282; J0456; J0696; J1100; J1160; J1644; J1650; J1815; J2060; J2543; J2704; J3010; J3490; J3535; J7030; J7042; J7060; P9017; Q9967; U0003